=== PATIENT | female | born 1950 | race Caucasian/White ===

== ENCOUNTER → 2018-03-23 09:04 | Outpatient (CLI) | payer OTHER, SELFPAY ==
[2018-03-23 10:29] LABS: Fibrinogen 424 mg/dl (203-444)
[2018-03-23 10:46] LABS: Absolute Lymphocyte Count 1.26 X10^3/ul (0.83-4.51); Absolute Neutrophil Count 8.4 X10^3/uL (2.0-7.7); Basophil# 0.19 X10^3/uL; Basophil% 1.7 % (0-1); Eosinophil# 0.16 X10^3/uL; Eosinophils% 1.4 % (0-5); Hematocrit 48.9 % (37-47); Hemoglobin 16.7 g/dl (12.0-15.0); Lymphocyte # 1.26 X10^3/ul (4.0); Mean Corp Hgb Conc 34.2 g/gl (32-36); Mean Corpuscular Hgb 31.1 pg (27.0-32.0); Mean Corpuscular Volume 91.1 fL (81-99); Mean Platelet Vol. 9.3 fl (6.2-12.0); Monocyte# 1.42 X10^3/uL; Monocyte% 12.4 % (0-10); Neutrophil # 8.43 X10^3/uL (2.7-7.7); Neutrophil % 73.2 % (47-70); RBC Distribution Width CV 16.4 % (11.6-14.6); RBC Distribution Width SD 53.3 fl (35.1-43.9); Red Blood Count 5.37 M/mm3 (4.2-5.4); White Blood Count 11.5 K/mm3 (4.4-11.0)
[2018-03-23 10:47] LABS: Differential Indicated SCAN CRITERIA MET; POSITIVE COUNT YES; POSITIVE DIFFERENTIAL NO; POSITIVE MORPHOLOGY NO
[2018-03-23 10:48] LABS: Erythrocyte Sedimentation Rate 12 mm/hr (0-30)
[2018-03-23 10:53] LABS: CRP 6.34 mg/L (0.0-3.0)
[2018-03-23 11:32] LABS: Platelet Count 954 K/mm3 (150-450)
== END ==
PROVIDERS: Family Provider Family Medicine; PCP Family Medicine; Visit Provider Ophthalmology
DX: H53.2 Diplopia (principal); R51 Headache
CPT/HCPCS: 36415; 85025; 85384; 85652; 86140

== ENCOUNTER 2019-10-01 10:16 | Emergency (ER) | payer MEDICARE, SELFPAY ==
[2019-10-01 10:18] VITALS: BP 164/98; PULSE 141; RESP 17; TEMP 36.7; O2SAT 98; BMI 18.8
--- NOTE | 2019-10-01 10:20 | NURSING ---
NO OLD EKGS
[2019-10-01 10:23] VITALS: BP 164/98; PULSE 121; PULSE 141; RESP 17; RESP 18; TEMP 36.7; O2SAT 97; O2SAT 98
--- NOTE | 2019-10-01 10:30 | EKG12_ITS ---
Test Reason : PALPS Blood Pressure : / mmHG Vent. Rate : 122 BPM Atrial Rate : 286 BPM P-R Int : 000 ms QRS Dur : 082 ms QT Int : 300 ms P-R-T Axes : 089 036 195 degrees QTc Int : 427 ms Atrial flutter with variable A-V block Possible Inferior infarct , age undetermined ST & T wave abnormality, consider anterolateral ischemia Abnormal ECG Confirmed by MCKENZIE TRAVIS, LUPILLO ([id number]), multimedia editor CARLOS NOVAK ([id number]) on 10/04/2019 10:21:01 AM Referred By: ROYA/CONNOR Confirmed By:BALAJI RINCON MD
[2019-10-01 10:38] LABS: Absolute Neutrophil Count 6.5 X10^3/uL (2.0-7.7); Basophil# 0.14 X10^3/uL; Basophil% 1.6 % (0-1); Eosinophil# 0.04 X10^3/uL; Eosinophils% 0.4 % (0-5); Lymphocyte % 12.2 % (19-41); Mean Corp Hgb Conc 34.9 g/dL (32-36); Mean Corpuscular Hgb 36.4 pg (27.0-32.0); Mean Corpuscular Volume 104.4 fL (81-99); Mean Platelet Vol. 8.4 fl (6.2-12.0); Monocyte# 1.18 X10^3/uL; Monocyte% 13.1 % (0-10); NRBC Flagged by Analyzer 0 % (0-5); Neutrophil # 6.52 X10^3/uL (2.7-7.7); Neutrophil % 72.3 % (47-70); Platelet Count 484 K/mm3 (150-450); RBC Distribution Width CV 13.7 % (11.6-14.6); RBC Distribution Width SD 52.5 fl (35.1-43.9); Red Blood Count 4.12 M/mm3 (4.2-5.4)
[2019-10-01] MEDS: 0.9% Normal Saline 1,000 ML 150 ML IV (10:38)
[2019-10-01] MEDS: dilTIAZem 25 MG/5 ML Vial 20 MG IV BOLUS (10:38)
--- NOTE | 2019-10-01 10:40 | RAD_ITS ---
STUDY: X-RAY CHEST REASON FOR EXAM: Female, 69 years old. Tachycardia. Radiation treatment one day ago. TECHNIQUE: Single AP portable view of the chest. COMPARISON: PET scan report dated 11/10/2014 and x-ray dated 10/24/2014. FINDINGS: Cardiac silhouette unremarkable. Pulmonary vascularity unremarkable. Aorta slightly calcified. Left upper lobe masslike airspace disease measuring 6 cm x 4 cm. Biapical calcification/scarring. Extensive COPD/emphysema. Mild pulmonary fibrotic changes. No focal patchy airspace opacities. Costophrenic angle blunting without significant effusions. Upper abdomen unremarkable. Osseous structures demineralized with degenerative features. No pneumothorax. RAD/Chest 1 View (Portable) IMPRESSION: No new focal patchy airspace opacities Left upper lobe mass (routine follow-up recommended) Extensive COPD/emphysema with pulmonary fibrotic changes Costophrenic angle blunting without significant effusions Electronically Signed: Kevin Arreguin DO at 11:17 EST Tel , Service support ,
[2019-10-01 10:59] LABS: Anion Gap 6 (5-15); BUN 8 mg/dL (7-18); BUN/Creat Ratio 10.2 RATIO (10-20); Calcium,Total 8.7 mg/dL (8.5-10.1); Chloride 100 mmol/L (98-107); Creatinine, Serum 0.78 mg/dL (0.55-1.02); EST Glomerular Filtration Rate 78 mL/min (>60); Est Glom Filt Rate - Afr Amer 94 mL/min (>60); Glucose 83 mg/dL (74-106); Potassium 4.3 mmol/L (3.5-5.1); Sodium Level 136 mmol/L (136-145)
[2019-10-01 11:17] VITALS: BP 134/68; PULSE 89; RESP 20; O2SAT 95
--- NOTE | 2019-10-01 11:22 | ED.VISSUMM ---
- ER Visit Summary Date of Service: 10/01/19 Chief Complaint: [Tachycardia] History of Present Illness: The patient is a 69 F [presents the emergency department with tachycardia that was noted today while she was getting radiation for her lung cancer. Patient states that when she got off the radiation table she felt little bit lightheaded and they checked her pulse and it was elevated so she was referred to the emergency department. Patient states that she has had problems with palpitations for years just a month ago she was referred to a umbrella cutter at [facility] as an outpatient she cannot remember the name of the umbrella cutter however. Patient apparently had a outpatient cardioversion and was started on Eliquis at that time. Patient also on Cardizem 300 mg daily. Patient denies any chest pain or shortness of breath. She denies any fevers or recent illness otherwise.] Physical Examination: [HEENT-PERRLA, EOMI. Cranial nerves II through XII grossly intact. TMs clear. Mucous membranes moist. No adenopathy. Cardiovascular-irregularly irregular and tachycardic with heart rate in the 120s. No murmurs auscultated. Lungs-breath sounds bilaterally with some faint expiratory wheezes noted. No accessory muscle use or retractions. Abdomen-normoactive bowel sounds, soft, nontender, no rebound or rigidity, no peritoneal signs. Extremities-intact ?4, normal range of motion, normal pulses, atraumatic] Test Results: [Patient had an EKG on arrival that showed a atrial flutter with ventricular rate of [address] changes. CBC with differential was unremarkable. Chemistries unremarkable. Troponin was less than 0.015. Chest x-ray showed chronic changes and COPD. ] Emergency Department Course and Treatment: [On arrival patient placed on seeing eye dog trainer and was given Cardizem 20 mg IV bolus and her heart rate in the 90s now. Patient case was discussed with umbrella cutter on-call Dr. Paez who did not recommend cardioversion but rather increasing patient's Cardizem to 360 mg daily. He recommended patient follow-up with her umbrella cutter in [place].] Treatment Plan: [] Increase Cardizem to 360 mg daily. Patient to follow-up with her umbrella cutter which she has scheduled appointment with within the next week. Disposition: [Discharged home in stable condition] Impression: [Atrial flutter] This note was generated with Dragon dictation software. It may contain incorrect words, spelling, and punctuation that were not noted in review of the chart prior to signing ED Disposition - Plan for ED Patient: Referrals: Hi Jean [Primary Care Provider] -
--- NOTE | 2019-10-01 11:26 | ED.DEP ---
ED Disposition - Plan for ED Patient: Instructions: Atrial Flutter Prescriptions: Diltiazem CD [Cardizem CD] 360 mg PO DAILY #60 cap Prescription Printed Referrals: Hi Jean [Primary Care Provider] - Additional Instructions: See Dr. Haas within the next week and increase Cardizem dose to 360mg daily
[2019-10-01 11:38] VITALS: BP 143/84; PULSE 91; RESP 16; O2SAT 95
--- NOTE | 2019-10-01 11:40 | ED.RN ---
REVIEWED D/C INSTRUCTIONS, FOLLOW UP CARE, PRESCRIPTION, AND S/S THAT WOULD WARRANT A RETURN TO THE ED WITH PT. PT VERBALIZED AN UNDERSTANDING AND DENIES FURTHER QUESTIONS FOR THIS RN. PT SKIN P/W/D, RESP EVEN AND UNLABORED, PT A&O X 3, NO DISTRESS NOTED.
== END 2019-10-01 11:41 | disposition home or self-care (01) ==
PROVIDERS: Emergency Provider Emergency Medicine; Family Provider Family Medicine; PCP Family Medicine
DX: I48.92 Unspecified atrial flutter (principal); C34.90 Malignant neoplasm of unspecified part of unspecified bronchus or lung; I10 Essential (primary) hypertension; Z72.0 Tobacco use; Z79.02 Long term (current) use of antithrombotics/antiplatelets; Z79.82 Long term (current) use of aspirin; Z79.899 Other long term (current) drug therapy
CPT/HCPCS: 71045; 80048; 84484; 85025; 93005; 96361; 96374; 99284; J7030; A4216

== ENCOUNTER 2019-11-01 10:08 | Day surgery (SDC) | payer MEDICARE, SELFPAY ==
[2019-10-21 13:57] VITALS: BMI 18.6
--- NOTE | 2019-11-01 | TONS_PTH ---
PATIENT: SUSHIL CALLAHAN LOC: [facility] [place] U#:[id number] AGE/SX: 69/F ROOM: RE11/01/[address]: Dr. Kevin Chang MD : 1950 BED: DIS: 11/01/2019 SPEC #: [id number] RECD: 11/01/19 12:12 STATUS: SHANNAN ODILIA #: [id number] PIERO: 11/01/19 00:[address]: Kevin Chang DEPT: SURGICAL PATHOLOGY RECD BY: Estela Renee ENTERED: 11/01/19 12:49 SP TYPE: TONSILS OTHR DR: Dr. Hi Jean MD Tissues: A - Tonsil, NOS Procedures: Frozen Section (charge) Surgery Specimen Level III Surgery Specimen Level IV HEADER OPERATION: Tonsillectomy, frozen section PRE-OP DIAGNOSIS: Benign neoplasm of tonsil; dysphagia TISSUE SUBMITTED: A - Left tonsil, frozen, B - Right tonsil FROZEN SECTION DIAGNOSIS A. Left tonsil: Negative for malignancy. LANCE:dalila 11/01/19 Case has been reviewed in consultation with Dr. Clemente who concurs with the above diagnosis. IDC:AM MICROSCOPIC DIAGNOSIS A. Left tonsil, biopsy: Reactive lymphoid hyperplasia. Extensive actinomyces colonization. Negative for malignancy. B. Right tonsil, biopsy: Reactive lymphoid hyperplasia. Negative for malignancy. LANCE:dalila 11/05/19 COMMENT Correlation with clinical, radiologic findings and appropriate follow up are necessary. MICROSCOPIC DESCRIPTION Slides are reviewed. GROSS DESCRIPTION A - Received fresh for frozen section diagnosis labeled with the patient's name is a specimen designated left tonsil. The specimen consists of a tonsil that weighs 1.6 gm and measures 2 x 1.5 x 1 cm. The external surface is pink-love, smooth, glistening and somewhat lobulated. Focally it is hemorrhagic, granular and bears cautery artifact. The specimen is inked and serially sectioned to reveal normal tonsillar architecture. The entire specimen is submitted for frozen section diagnosis in two cassettes. / LANCE:dalila 11/01/19 B - Received in formalin labeled with the patient's name and designated right tonsil. The specimen consists of a tonsil that weighs 2.1 gm and measures 2.5 x 1 x 1 cm. The external surface is pink-love, smooth, glistening and somewhat lobulated. Focally it is hemorrhagic, granular and bears cautery artifact. Serial cross sections through the tonsil reveal normal tonsillar architecture. The entire specimen is submitted in one cassette. / SJ:dalila 11/04/19 TC:5 CPT: 36609, 77464, 34393, 79873
[2019-11-01 10:34] VITALS: BP 135/85; PULSE 54; RESP 16; TEMP 37.5; O2SAT 96; BMI 20.4
[2019-11-01] MEDS: Lactated Ringers 1,000 ML 100 ML IV ×2 (10:45→12:46)
[2019-11-01 10:47] LABS: Prothrombin Time (Protime)PT. 13.5 SECONDS (11.7-14.9)
[2019-11-01 10:48] LABS: Partial Thromboplast Time 28.3 Seconds (24.1-36.2)
[2019-11-01 10:53] LABS: AST(SGOT) 14 U/L (15-37); Alanine Aminotransfer ALT/SGPT 20 U/L (13-56); Albumin, Serum 3.4 g/dL (3.2-5.0); Alkaline Phosphatase 235 U/L (45-117); Bilirubin, Direct 0.14 mg/dL (0.00-0.30); Globulin 4.7 g/dL (2.2-4.2); Protein, Total 8.1 g/dL (6.4-8.2); Thyroid Stim Hormone (TSH) 3.27 uIU/mL (0.358-3.74)
[2019-11-01] MEDS: Bacitracin 500 UNITS/GM PACKET (12:10)
--- NOTE | 2019-11-01 12:48 | PCM.OPRPT ---
Problem List (1) Benign neoplasm of tonsil Status: Acute (2) Malignant neoplasm of lower lobe, unspecified bronchus or lung Status: Acute Report of Operation Date of Procedure: 11/01/19 Pre-Operative Diagnosis: PET scan with suspicious uptake of left tonsil PET scan with suspicious uptake of left tonsil, history of lung cancer Post-Operative Diagnosis: Same Surgery/Procedure Performed:: Tonsillectomy Description of Surgical Findings:: Paula is a 69-year-old female with a history of recurring malignancies of the lungs. Recent PET scanning showed increased uptake of the left tonsil suspicious for viable neoplasm and biopsy was advised. The risks, alternatives, potential complications, and benefits were discussed at length and any questions answered to the patient and/or caregiver's satisfaction. Witnessed informed consent was obtained in the office, and the patient and/or caregiver was agreeable to proceed. Procedure went as follows: The patient was identified in the preoperative holding, brought to the operating room, was placed under general anesthesia and intubated. When appropriate anesthesia was obtained, the head of bed was rotated and the patient prepped and draped in usual sterile fashion. A Sarina Leandro mouthgag was then placed and the patient suspended from the [place] stand. The oral cavity was examined and noted to have 1+ cryptic tonsillar hypertrophy. Beginning on the right side, the right tonsil was then grasped with a curved tenaculum and dissected from the underlying capsule with monopolar cautery. This was then sent as specimen. Similar procedure was then completed on the contralateral side. Frozen section evaluation showed no suggestion of malignant process within the left tonsil and as such no further dissection was undertaken. The oral and nasal cavities were then irrigated with saline solution. An NG tube was then placed to decompress the stomach. The patient was then returned to anesthesia, revived and extubated having tolerated the procedure well. Type of Anesthesia:: General Anesthesiologist: Sami Mcgill Special Medications: none Specimen's removed: bilateral tonsils Drains: none Estimated Blood Loss (mL): 0 mL Fluids Replaced: 1100 mL Grafts/Implants Used: none - Complications none - Admit VTE Documentation VTE Present on Admission: No VTE Mechan Device Prophylaxis: SCD's VTE Pharm Prophylaxis ordered?: No
--- NOTE | 2019-11-01 12:52 | PCM.DC.T&A ---
Discharge Diet: No Restrictions Discharge Activity: Return to Normal Activity Call your doctor if your incision/area has: Sudden Increased Bleeding Call your doctor if you observe: Fever of 101 or Higher, Uncontrolled pain Allergies/Adverse Reactions: Allergies Penicillins Allergy (Verified 11/01/19 10:28) Rash Medications to take at Discharge Hydroxyurea [Hydrea] 500 mg PO DAILY 10/24/14 Tiotropium [place] [Spiriva 18 MCG] 1 puff INHALATION DAILY 10/24/14 Venlafaxine XR [Effexor Xr] 150 mg PO DAILY 10/24/14 Apixaban [Eliquis] 5 mg PO BID 10/01/19 Levothyroxine [Synthroid] 50 mcg PO DAILY 10/01/19 aspirin 81 mg chewable tablet 162 mg PO DAILY tab 10/21/19 diltiazem HCl 420 mg tablet,extended release 24 hr 420 mg PO DAILY #30 tab 10/21/19 fexofenadine 180 mg tablet 180 mg PO DAILY PRN 10/21/19 Metoprolol Succinate [Toprol Xl] 100 mg PO DAILY 10/28/19 Multivitamin [Multivitamins] 1 ea PO DAILY 10/28/19 Omeprazole 40 mg PO PRN PRN 10/28/19 Primary Care Physician: Hi Jean [Primary Care Provider] - Test Results: Test results from this visit will be discussed in further detail at your follow-up appointment, if applicable. Please Follow Up With: Kevin Chang MD When: 2 weeks
[2019-11-01 12:54] VITALS: BP 109/59; BP 135/85; PULSE 80; RESP 16; TEMP 36.8; O2SAT 95
[2019-11-01 13:00] VITALS: BP 101/58; BP 135/85; PULSE 80; RESP 16; O2SAT 93
[2019-11-01 13:15] VITALS: BP 125/74; BP 135/85; PULSE 62; RESP 16; O2SAT 94
[2019-11-01 13:30] VITALS: BP 130/72; BP 135/85; PULSE 65; RESP 16; TEMP 36.8; O2SAT 94
[2019-11-01] MEDS: Acetaminophen 650 MG/20 ML UDC 500 MG PO (14:13)
[2019-11-01] MEDS: Ibuprofen 100 MG/5 ML UDC 400 MG PO (16:36)
[2019-11-01 17:00] VITALS: BP 118/65; BP 135/85; PULSE 60; RESP 16; TEMP 37.3; O2SAT 96
== END 2019-11-01 17:10 | disposition home or self-care (01) ==
LOC: SDC 10:08 → AC 10:09
PROVIDERS: Anesthesiology; PCP Family Medicine; Referring Provider Otolaryngology; Visit Provider Otolaryngology
PROC: (CPT 42826; principal; 2019-11-01 11:40)
DX: J35.1 Hypertrophy of tonsils (principal); D10.4 Benign neoplasm of tonsil; R13.10 Dysphagia, unspecified; K21.9 Gastro-esophageal reflux disease without esophagitis; I10 Essential (primary) hypertension; J44.9 Chronic obstructive pulmonary disease, unspecified; F10.20 Alcohol dependence, uncomplicated; Y90.9 Presence of alcohol in blood, level not specified; I48.91 Unspecified atrial fibrillation; F17.200 Nicotine dependence, unspecified, uncomplicated; Z79.01 Long term (current) use of anticoagulants; Z85.118 Personal history of other malignant neoplasm of bronchus and lung
CPT/HCPCS: 00170; 42826; 36415; 80076; 84443; 85610; 85730; 88304; 88305; 88331; J7120; J2405

== ENCOUNTER → 2020-03-03 14:48 | Outpatient (CLI) | payer MEDICARE, SELFPAY ==
[2019-11-06 09:49] VITALS: BMI 17.4
--- NOTE | 2020-03-03 14:49 | ECHOD_ITS ---
Reason For Study: LV dysfunction Procedure This was a 2D Doppler, Color Flow transthoracic echocardiogram. Exam performed in department. Left Ventricle Normal LV size. The estimated ejection fraction is 70 %. Diastolic function is indeterminate. No regional wall motion abnormalities noted. Right Ventricle Normal RV size. Normal systolic function. Atria The left atrium is severely enlarged. The right atrium is severely enlarged. No doppler evidence for ASD. Mitral Valve There is no mitral valve stenosis. Mild (1+) mitral valve insufficiency. Tricuspid Valve There is no tricuspid stenosis. Moderate (2+) tricuspid valve insufficiency. Pulmonary artery systolic pressure is 60 mmHg. Aortic Valve Trisinus/trileaflet aortic valve. Aortic sclerosis, no stenosis. There is no aortic stenosis. Mild (1+) aortic valve insufficiency. Pulmonic Valve There is no pulmonic valvular stenosis. Mild (1+) pulmonic valve insufficiency. Great Vessels Normal aortic root. Pericardium/Pleural No pericardial effusion. MMode/2D Measurements & Calculations LVIDd: 4.2 cm IVSd: 0.72 cm Ao root diam: 3.8 cm LVIDs: 2.8 cm LVPWd: 0.78 cm RVDd: 3.6 cm FS: 32.6 % LAV(MOD-bp): 70.5 ml LA A4 area: 22.2 cm2 LA dimension(2D): 5.5 cm LAV(MOD-bp) Indexed: 42.4 ml/m2 LAV(MOD-sp2): 73.9 ml LAV(MOD-sp4): 66.6 ml RA A4 area: 26.3 cm2 Time Measurements MV dec time: 0.10 sec Doppler Measurements & Calculations MV E max rosy: 99.3 cm/sec Ao V2 max: 106.9 cm/sec LV V1 max: 92.4 cm/sec MV A max rosy: 49.7 cm/sec Ao max P.6 mmHg LV V1 max P.5 mmHg MV E/A: 2.0 PA V2 max: 92.2 cm/sec PI end-d rosy: 109.4 cm/sec TR max rosy: 329.8 cm/sec TR max P.7 mmHg Interpretation Summary The estimated ejection fraction is 70 %. Diastolic function is indeterminate. Mild (1+) mitral valve insufficiency. Moderate (2+) tricuspid valve insufficiency. Pulmonary artery systolic pressure is 60 mmHg. Mild (1+) aortic valve insufficiency. Mild (1+) pulmonic valve insufficiency. Ordering Physician: Noelle Paez Referring Physician: Dr Hi Jean Performed By: Romana Del Valle, RDCS, RVT
== END ==
PROVIDERS: PCP Family Medicine; Referring Provider Specialist; Visit Provider Specialist
DX: Z01.810 Encounter for preprocedural cardiovascular examination (principal)
CPT/HCPCS: 93306

== ENCOUNTER → 2020-05-12 14:51 | Outpatient (CLI) | payer MEDICARE, SELFPAY ==
[2020-03-04 09:47] VITALS: BMI 17.4
--- NOTE | 2020-05-12 15:00 | PET_ITS ---
EXAMINATION: FDG PET-CT INDICATIONS: A 70-year-old female with reported history of carcinoma of the lung presenting for restaging examination. COMPARISON EXAMINATION: FDG PET-CT study dated 11/10/14, CT of the chest report dated 04/17/2020 INDEX LESION SIZE SUV INTERPRETATION NEW: left lower lung-nodular 36.7-mm (frame 161) 5.2 Fulfills quantitative criteria for viable neoplasm, histopathologic analysis may be indicated NEW: left lower anterolateral lung-lingula 19.3-mm (frame 151) 2.9 May necessitate histopathologic investigation PREVIOUS: left lower lung-left lower lobe Demonstrates metabolic resolution on the current examination NEW: heterogeneous, diffuse left upper lung 9.1-cm (frame 194) 9.6 Most consistent with activated leukocytes associated with inflammatory process-pneumonitis NEW: right mid posterior lung-right lower lobe 1.6 Quantitative criteria for viable neoplasm are not fulfilled TECHNIQUE: Following the intravenous administration of 15.9 mCi of F-18 deoxyglucose via the left antecubital fossa, multiplanar image acquisitions of the neck, chest, abdomen and pelvis to level of mid thigh, obtained at one hour post radiopharmaceutical administration contemporaneously interpreted with the current CT of the neck, chest, abdomen and pelvis, to level of mid thigh, dated 05/12/2020 via coregistration and FDG PET-CT study dated 11/10/2014, CT of the chest report dated 04/17/2020 reveals: BLOOD GLUCOSE LEVEL:?? 102 mg/dl?HEIGHT:?69 inches?WEIGHT: 116 lbs. FINDINGS: 1. Newly identified nodular increased glucose metabolism is manifest in the left lower posterior lung-left lower lobe generating a calculated maximal standard uptake value of 5.2. The maximal axial diameter of the corresponding parenchymal density on review of CT of the chest dated 05/12/2020 is 36.7-mm (transverse). 2. Heterogeneous increased tracer uptake is diffusely apparent in the left upper lung field-left upper lobe which appears to correspond to consolidation-airspace disease on review of CT of the chest dated 05/12/2020. The calculated maximal standard uptake value is 9.6. The maximal axial diameter of the metabolic-morphologic abnormality on review of CT of the chest dated 05/12/2020 is 9.1-cm (AP). 3. Facilitated tracer uptake is noted in the left lower anterolateral lung-left upper lobe, lingula rendering a calculated maximal standard uptake value of 2.9. The maximal axial diameter of the corresponding apparent ground glass density on review of CT of the chest dated 05/12/2020 is 19.3-mm (AP). 4. Mild increased radiopharmaceutical concentration is observed in the right mid posterior lung-right lower lobe generating a calculated maximal standard uptake value of 1.6. 5. Normal physiologic distribution of the radiopharmaceutical is apparent in the hepatic (1.9/2.5) and splenic parenchyma, both renal units, bladder and visualized intestinal tract. The visualized portion of the cerebral cortex demonstrate symmetric and preserved glucose metabolism. Diffuse radiopharmaceutical concentration is noted in all four quadrants of the abdomen and pelvis. There is evidence of an apparent bladder diverticulum. Prominent collecting system activity is defined in the right-left renal units (R>L). The previously identified left lower posterior lung-left lower lobe hypermetabolic abnormality is not apparent on the current examination. Pertinent CT findings are as follows: CHEST: There is atherosclerotic calcification defined in the thoracic aorta without evidence of dilatation-aneurysm formation. Coronary arterial calcification is observed. Bilateral subcentimeter axillary soft tissue densities are ametabolic. Emphysematous changes are noted in the bilateral upper-mid lung zones. Apparent bleb formation is noted in the right lower posterior lung. ABDOMEN AND PELVIS: Cholelithiasis is defined. There is atherosclerotic calcification defined in the abdominal aorta without evidence of dilatation-aneurysm formation. Abdominal-pelvic arterial calcification is observed. Bilateral inguinal soft tissue densities with fatty hilus are non-glucose avid. SKELETAL: Degenerative changes are noted in the cervical, thoracic and lumbar spine. A compression deformity is noted at the level of the ninth thoracic vertebra without evidence of facilitated FDG uptake. There is diffuse demineralization identified throughout the axial skeletal structures. PET/PET/CT Tumor Base -Thigh Init IMPRESSION: 1. The newly identified nodular focus noted in the left lower posterior lung-left lower lobe, left lower anterolateral lung-lingula likely warrants histopathologic investigation secondary to the quantitative degree of uptake. (Adriana et al, Annals of Internal Medicine, 138:724, 2003). 2. Heterogeneous increased tracer uptake diffusely apparent in the left upper lung field corresponding to consolidation, airspace disease, is most consistent with an inflammatory process-pneumonitis. 3. Subtle increased tracer uptake noted in the right mid posterior lung-right lower lobe does not fulfill quantitative criteria for viable neoplasm. 4. There is interval metabolic resolution of the previously identified left lower lobe hypermetabolic abnormality. 5. Overall, compared to the prior FDG PET study dated 11/10/2014, there is potential interim development of defined viable neoplastic disease within the context of the left lower lobe and left upper lobe-lingula which may necessitate histopathologic sampling. Interval resolution of the prior defined left lower lung hypermetabolic focus is noted as defined above. Electronic Signature Jerad Cespedes D.O. Accurate Quantification of SUVs for this report are calculated using the exclusive [employer]. Electronically Signed: Jerad Cespedes DO at 23:54 EDT Tel , Service support ,
== END ==
PROVIDERS: PCP Family Medicine; Referring Provider Internal Medicine Hematology & Oncology; Visit Provider Internal Medicine Hematology & Oncology
DX: C34.12 Malignant neoplasm of upper lobe, left bronchus or lung (principal); C77.1 Secondary and unspecified malignant neoplasm of intrathoracic lymph nodes; R91.1 Solitary pulmonary nodule
CPT/HCPCS: 78815; A9552

== ENCOUNTER → 2020-05-27 08:48 | Outpatient (CLI) | payer MEDICARE, SELFPAY ==
[2020-03-04 09:47] VITALS: BMI 17.4
[2020-05-27] VITALS (10 sets, daily range): BP systolic 124–159; BP diastolic 57–87; PULSE 81–118; RESP 20–29; O2SAT 90–100; BMI 17.1
--- NOTE | 2020-05-27 | ASPIGT_PTH ---
PATIENT: SUSHIL CALLAHAN LOC: CT U#:[id number] AGE/SX: 75/F ROOM: RE05/27/[address]: Dr. Joan Barillas MD : 1950 BED: DIS: SPEC #: [id number] RECD: 05/27/20 11:42 STATUS: SHANNAN REBetty #: [id number] PIERO: 05/27/20 00:[address]: Joan Barillas DEPT: SURGICAL PATHOLOGY RECD BY: Barney Benedict ENTERED: 05/27/20 11:42 SP TYPE: ASP RAD OTHR DR: Dr. Hi Jean MD Tissues: Lung, NOS Procedures: FNA Specimen Adequacy Elastin Stain (control) Trichrome (control) Special Stain Group II Surgery Specimen Level IV Retic (control) Iron Stain (control) Imprint (control) HEADER OPERATION: CT-guided left lung biopsy PRE-OP DIAGNOSIS: Left lower lung mass TISSUE SUBMITTED: Left lower lung mass 18 gauge x4 MICROSCOPIC DIAGNOSIS Left lower lung mass, CT-guided core biopsy: Fragments of lung parenchymal tissue with extensive fibrosis, chronic inflammation and thrombosis. Negative for malignancy. See microscopic description and comment. LANCE:dalila 05/28/20 COMMENT The specimen is evaluated at the time of biopsy by Dr. Solo. Immediate Evaluation = Atypical cells noted. Correlation with clinical, radiologic findings and appropriate follow up are necessary. MICROSCOPIC DESCRIPTION Slides are reviewed. The specimen shows fragments of lung parenchymal tissue with extensive fibrosis, moderate chronic inflammation, thrombosis and old hemorrhage. Alveoli also shows focal thrombus formation, pneumocyte-2 hyperplasia and mild atypia. No evidence malignancy is noted. Iron, reticulin, elastin and trichrome stains are used in the evaluation of the specimen; matched controls are appropriate. GROSS DESCRIPTION Received in fixative is one container labeled with the patient's name and designated left lower lung mass. The specimen consists of multiple elongated fragments of love soft tissue that in aggregate measure 2 x 0.3 x 0.1 cm. The specimen is totally submitted in one cassette. Four touch imprints are prepared at the time of core biopsy. / LANCE:dalila 05/27/20 TC:5 CPT: 89719, 83145, 09749 x4
--- NOTE | 2020-05-27 09:06 | CT_ITS ---
PROCEDURE: CT-guided core biopsy of lung mass Individualized dose optimization techniques were used for this CT. INDICATION: Female, 70 years old. Nodule in the superior segment the right lung lower lobe. CT guidance CONSENT: The risks, benefits and alternatives to the procedure were explained to the patient, and the patient agreed to the procedure and signed the consent. SEDATION: Intermittent the intravenous and demonstration of Versed and fentanyl by nursing staff under continuous cardiopulmonary monitoring. Sedation less than approximately 30 minutes STERILE BARRIER TECHNIQUE: The following sterile barrier precautions were used during the procedure: hand hygiene; use of 2% chlorhexidine aseptic; use of a cap, mask, sterile gown, sterile gloves, sterile full body drape, and a large sterile sheet. PROCEDURE/TECHNIQUE: The risks, benefits, and alternatives to the procedure were explained to patient, and the patient agreed to the procedure and signed a consent form for the procedure. A timeout was performed to confirm the patient''s identity, the type of procedure, to be performed and the site of entry. Patient was positioned supine on the CT scan table. Under CT guidance using sterile technique and after infiltration of the skin and subcutaneous soft tissues with 40 mL of lidocaine 1% an 18-gauge core biopsy was introduced in the lung mass previously described. 2 core samples were obtained and were placed with in formalin solution and sent to the lab for evaluation. Touch prep slides were examined by the pathologist at the procedure. FINDINGS: Successful CT-guided core biopsy of lung mass. CT/Biopsy/Inj or Needle Placement IMPRESSION: Successful CT-guided core biopsy of lung mass. Electronically Signed: Robert Clifton, at 17:40 EDT Tel , Service support ,
[2020-05-27 09:09] LABS: Hematocrit 36.2 % (37-47); Mean Corp Hgb Conc 33.1 g/dL (32-36); Mean Corpuscular Hgb 31.4 pg (27.0-32.0); Mean Corpuscular Volume 94.8 fL (81-99); POSITIVE COUNT YES; RBC Distribution Width CV 15.6 % (11.6-14.6); RBC Distribution Width SD 54.5 fl (35.1-43.9); Red Blood Count 3.82 M/mm3 (4.2-5.4); White Blood Count 9.7 K/mm3 (4.4-11.0)
[2020-05-27 09:16] LABS: Platelet Count 753 K/mm3 (150-450); Scan Indicated on CBC? Y/N NO
--- NOTE | 2020-05-27 09:27 | NURSING ---
DR PINEDA INFORMED ON PLT COUNT OF [phone].
[2020-05-27 09:40] LABS: International Normalized Ratio 1.1; Prothrombin Time (Protime)PT. 13.8 SECONDS (11.7-14.9)
[2020-05-27 09:41] LABS: Partial Thromboplast Time 32.9 Seconds (24.1-36.2)
[2020-05-27] MEDS: Midazolam 2 MG/2 ML Syringe IV (10:45)
[2020-05-27] MEDS: fentaNYL 100 MCG/2 ML Ampul IV (10:45)
--- NOTE | 2020-05-27 11:30 | RAD_ITS ---
STUDY: X-RAY CHEST REASON FOR EXAM: Female, 70 years old. IMMEDIATE POST LUNG BIOPSY INS AND EXP AP CXR TECHNIQUE: Single AP portable view of the chest. COMPARISON: 10/01/2019. FINDINGS: There is a large opacity in the left lung upper lobe suggesting a mass that has increased in size since the previous study. There is a small left pleural effusion. Normal size heart. Normal mediastinum and samara. Normal visualized pulmonary arteries. Normal visualized aortic arch and descending thoracic aorta. Normal visualized thoracic spine. Normal visualized ribs, clavicles, and shoulders. There is no demonstrated abnormality of the visualized soft tissue structures of the upper abdomen. RAD/Chest Insp/Exp 2 View IMPRESSION: Increased size of left lung upper lobe mass. Small left pleural effusion. There is no evidence of pneumothorax. Electronically Signed: Robert Clifton, at 12:35 EDT Tel , Service support ,
--- NOTE | 2020-05-27 13:25 | RAD_ITS ---
STUDY: X-RAY CHEST REASON FOR EXAM: Female, 70 years old. 2 HOUR POST LUNG BIOPSY INS AND EXP AP CXR''S TECHNIQUE: Single AP portable view of the chest. COMPARISON: None. FINDINGS: There is scarring in the left lung upper lobe. Patchy airspace opacities are seen in both lungs have nonspecific appearance. Pleural calcifications are seen in the right lung apex most likely due to an old infection. Normal size heart. The mediastinum is shifted to the left. Normal visualized pulmonary arteries. Normal visualized aortic arch and descending thoracic aorta. There is demineralization of the osseous structures. There is degenerative osteoarthritis of the bilateral shoulders. There is no demonstrated abnormality of the visualized soft tissue structures of the upper abdomen. RAD/Chest Insp/Exp 2 View IMPRESSION: There is no evidence of pneumothorax. Electronically Signed: Robert Clifton, at 15:13 EDT Tel , Service support ,
[2020-05-28 14:07] LABS: Pathologist Review Reviewed
== END ==
PROVIDERS: PCP Family Medicine; Referring Provider Internal Medicine Hematology & Oncology; Visit Provider Internal Medicine Hematology & Oncology
DX: J84.10 Pulmonary fibrosis, unspecified (principal); R91.8 Other nonspecific abnormal finding of lung field; C34.90 Malignant neoplasm of unspecified part of unspecified bronchus or lung; J90 Pleural effusion, not elsewhere classified
CPT/HCPCS: 32405; 36415; 71046; 77012; 85027; 85610; 85730; 88172; 88305; 88313; 99155; 99156; 99157; J7040; A4216

== ENCOUNTER → 2020-11-03 08:49 | Outpatient (CLI) | payer MEDICARE, SELFPAY ==
[2020-05-27 09:53] VITALS: BMI 17.1
[2020-11-03] VITALS (13 sets, daily range): BP systolic 97–135; BP diastolic 63–75; PULSE 56–60; RESP 20–27; TEMP 36.6; O2SAT 93–100; BMI 16.5
--- NOTE | 2020-11-03 | ASPIGT_PTH ---
PATIENT: SUSHIL CALLAHAN LOC: [place] U#:[id number] AGE/SX: 75/F ROOM: RE11/03/[address]: Dr. Joan Barillas MD : 1950 BED: DIS: SPEC #: [id number] RECD: 11/03/20 11:25 STATUS: SHANNAN REBetty #: [id number] PIERO: 11/03/20 00:[address]: Joan Barillas DEPT: SURGICAL PATHOLOGY RECD BY: Jemima Horne ENTERED: 11/03/20 11:26 SP TYPE: ASP RAD OTHR DR: Dr. Hi Jean MD Tissues: Lung, NOS Procedures: PAS with Diastase (control) FNA Specimen Adequacy Elastin Stain (control) Trichrome (control) Special Stain Group II PAS Stain (control) Surgery Specimen Level IV Retic (control) Iron Stain (control) Imprint (control) HEADER OPERATION: CT-guided right lung biopsy PRE-OP DIAGNOSIS: Right lung mass TISSUE SUBMITTED: Right lung mass, 20-gauge core x5 MICROSCOPIC DIAGNOSIS Right lung mass, CT-guided core biopsy: Collagenized tissue with fibrinoid material and focal mild chronic inflammation. No evidence of malignancy. See comment. AM:dalila 11/04/2020 COMMENT The specimen is evaluated at the time of biopsy by Dr. Solo. Immediate Evaluation = Negative for malignant cells. Iron stain with matched control reveals no stainable intraparenchymal iron. Reticulin and trichrome stain with matched controls are focally positive. Elastin stain with matched control does not reveal vasculitis. PAS with and without diastase does not reveal an accumulation of abnormal proteins. Clinical correlation is suggested. Reference is made to the patient's left lower lung mass, CT-guided core biopsy ([id number]) which was negative for malignancy. MICROSCOPIC DESCRIPTION Slides are reviewed. GROSS DESCRIPTION Received in fixative is one container labeled with the patient's name and designated right lung, CT-guided core biopsy. The specimen consists of multiple elongated fragments of love soft tissue that in aggregate measure 1 x 0.2 x 0.1 cm. The specimen is totally submitted in one cassette. Five touch imprints are prepared at the time of core biopsy. / LANCE:dalila 11/03/20 TC:4 CPT: 05058, 57987, 07189 x6
--- NOTE | 2020-11-03 09:03 | CT_ITS ---
PROCEDURE: CT GUIDED CORE NEEDLE BIOPSY OF A right lower lobe LUNG LESION INDICATION: Female, 70 years old. Right lung mass biopsy, COPD, metastatic lung cancer. PHYSICIAN: Dr. HARRIETT TRAVIS CONSENT: Written informed consent was obtained having explained the risks, benefits and alternatives in detail with the patient who accepted the risks and agreed to proceed. Laboratory review and clinical assessment was performed. CONSCIOUS SEDATION PROTOCOL: The Drugs used were: 1 mg Versed, IV., and 25 mcg Fentanyl, IV. The sedation time was: 15 minutes. The conscious sedation protocol was independently monitored. Conscious sedation was started at 10:34 AM and terminated at 10:44 AM. RADIATION DOSAGE (If Supplied By Facility): CTDIvol = ( 11.5 ) mGy, DLP = ( 140.64 ) mGycm Individualized dose optimization techniques were used for this CT. TECHNIQUE: The patient was placed in the prone position. A noncontrast CT was performed to localize the lesion in the posterior aspect of the right lower lobe . The skin surface was prepped and draped in a sterile fashion. 1% lidocaine was used for local anesthesia. Using CT guidance, a 20-gauge coaxial biopsy device was advanced to the periphery of the lesion. A total of 5 core specimens were obtained. The specimens were placed in a formalin solution. A post procedure CT demonstrated no adverse sequelae or pneumothorax. The patient tolerated the procedure well without adverse event. A negative biopsy does not exclude malignancy. Further imaging or clinical followup based on patient condition and degree of clinical suspicion for malignancy. Suggest rebiopsy, if biopsy results do not match with clinical scenario. CT/Biopsy/Inj or Needle Placement IMPRESSION: 1. CT directed core needle biopsy of the right lower lobe pulmonary nodular lesion using CT image guidance with image documentation as described. Pathology results are pending. 2. Conscious Sedation protocol utilized with independent monitoring. Electronically Signed: Ever Gomez MD at 11:21 EST , Service support ,
[2020-11-03 09:07] LABS: Hematocrit 40.6 % (37-47); Mean Corpuscular Hgb 24.8 pg (27.0-32.0); Mean Corpuscular Volume 77.3 fL (81-99); Mean Platelet Vol. 7.9 fl (6.2-12.0); POSITIVE MORPHOLOGY YES; Platelet Count 711 K/mm3 (150-450); RBC Distribution Width CV 22.8 % (11.6-14.6); RBC Distribution Width SD 62.4 fl (35.1-43.9); Red Blood Count 5.25 M/mm3 (4.2-5.4)
[2020-11-03 09:09] LABS: Scan Indicated on CBC? Y/N YES- FLAGS NOTED
[2020-11-03 09:24] LABS: International Normalized Ratio 1.1; Prothrombin Time (Protime)PT. 13.2 SECONDS (11.7-14.9)
[2020-11-03] MEDS: Midazolam 2 MG/2 ML Syringe IV (10:34)
[2020-11-03] MEDS: fentaNYL 100 MCG/2 ML Ampul IV (10:35)
--- NOTE | 2020-11-03 10:50 | RAD_ITS ---
STUDY: X-RAY CHEST REASON FOR EXAM: Female, 70 years old. Immediate post lung biopsy AP inspiration and expiration. TECHNIQUE: AP inspiration expiration views. COMPARISON: Comparison is made with prior study dated 05/27/2020. FINDINGS: The patient is status post right lung biopsy. No evidence of pneumothorax. RAD/Chest Insp/Exp 2 View IMPRESSION: No evidence of pneumothorax on the immediate post right lung biopsy radiographs. Electronically Signed: Ever Gomez MD at 15:25 EST , Service support ,
--- NOTE | 2020-11-03 12:15 | RAD_ITS ---
STUDY: X-RAY CHEST REASON FOR EXAM: Female, 70 years old. 2HRS POST LUNG BX OF RIGHT LUNG. INSP. AND EXP. TECHNIQUE: AP inspiration and expiration views. COMPARISON: Comparison is made with prior study done earlier today. FINDINGS: 2 lower delayed postright lung biopsy radiographs. There is no evidence of pneumothorax. RAD/Chest Insp/Exp 2 View IMPRESSION: No evidence of pneumothorax on the delayed two-hour postright lung biopsy radiographs. Electronically Signed: Ever Gomez MD at 13:31 EST , Service support ,
== END ==
PROVIDERS: PCP Family Medicine; Referring Provider Internal Medicine Hematology & Oncology; Visit Provider Internal Medicine Hematology & Oncology
DX: J44.9 Chronic obstructive pulmonary disease, unspecified (principal); C78.00 Secondary malignant neoplasm of unspecified lung; D45 Polycythemia vera
CPT/HCPCS: 32408; 36415; 71046; 77012; 85027; 85610; 88172; 88305; 88313; J7040; A4216

== ENCOUNTER → 2020-12-30 12:58 | Outpatient (CLI) | payer MEDICARE, SELFPAY ==
[2020-12-01 10:48] VITALS: BMI 15.5
--- NOTE | 2020-12-31 10:03 | PFT ---
INTRODUCTION: The patient is a 70-year-old female that presents for pulmonary function studies secondary to a diagnosis of COPD. Respiratory therapy reported the patient was unable to perform the diffusing capacity maneuver. Bronchodilators were used during testing. INTERPRETATION: Forced expiration spirometry demonstrates no evidence of a large airways obstructive ventilatory defect. There was no significant response to aerosolized bronchodilators. Spirograms are of fair quality and plateau gradually. Body plethysmography was performed and reveals a decreased TLC to 4.41 L, 76% of predicted, indicative of a mild restrictive ventilatory impairment. Diffusing capacity maneuvers were unable to be performed. IMPRESSION: Isolated mild restrictive ventilatory impairment.
== END ==
PROVIDERS: PCP Family Medicine; Referring Provider Internal Medicine Critical Care Medicine; Visit Provider Internal Medicine Critical Care Medicine
DX: J44.9 Chronic obstructive pulmonary disease, unspecified (principal)
CPT/HCPCS: 94060; 94726

== ENCOUNTER → 2021-01-04 12:29 | Outpatient (CLI) | payer MEDICARE, SELFPAY ==
[2020-12-01 10:48] VITALS: BMI 15.5
[2021-01-04 12:54] VITALS: PULSE 60; PULSE 64; PULSE 69; PULSE 87; PULSE 88; PULSE 89; PULSE 91; PULSE 92; O2SAT 87; O2SAT 88; O2SAT 91; O2SAT 92; O2SAT 94
--- NOTE | 2021-01-04 12:57 | CPS ---
Patient arrived in wheelchair on 2L pulse dose, patient placed on RA and desaturated to 87%. 2L was added and pulse ox came up to 92%. Patient started walk on 2L pulse dose. Patient pushed wheelchair. Patient's pulse ox dropped to 88% at the 3 min jason, o2 increased to 3L pulse dose. Patient's pulse ox dropped to 87% at the 4 min jason, O2 increased to 4L pulse dose. Patient walked 125 feet but that is more than she normally does. Ryder APPLIED RESEARCHER
--- NOTE | 2021-01-04 14:07 | PCM.PSN.6M ---
PSN 6 Minute Walk Test - 6 Minute Walk Test 6 Minute Walk Test: 6 Minute Walk Test PSN:6-Minute Walk Test Start: 01/04/21 12:54 Freq: Status: Active Protocol: RESP.6MINW Document 01/04/21 12:54 CECILY (Rec: 01/04/21 13:04 CECILY [id number]) 6 Minute Walk Test Date Performed 01/04/21 Time Performed 12:30 Height 5 ft 9 in Weight: 47.627 kg Weight in Pounds 105.[address]: Andre Jean Pre-test Oxygen Delivery Method Room Air Pulse Ox (%) 87 Pulse Rate (60-100 beats/min) 60 Dyspnea Davidson Scale (0-10) 2 Exertion Davidson Scale (6-20) 6 1st minute Oxygen Flow Rate (L/min) (L/min) 2 Oxygen Delivery Method Nasal Cannula Pulse Ox (%) 94 Pulse Rate (60-100 beats/min) 89 2nd minute Oxygen Flow Rate (L/min) (L/min) 2 Oxygen Delivery Method Nasal Cannula Pulse Ox (%) 91 Pulse Rate (60-100 beats/min) 92 3rd minute Oxygen Flow Rate (L/min) (L/min) 2 Oxygen Delivery Method Nasal Cannula Pulse Ox (%) 88 Pulse Rate (60-100 beats/min) 87 4th minute Oxygen Flow Rate (L/min) (L/min) 3 Oxygen Delivery Method Nasal Cannula Pulse Ox (%) 87 Pulse Rate (60-100 beats/min) 91 5th minute Oxygen Flow Rate (L/min) (L/min) 4 Oxygen Delivery Method Nasal Cannula Pulse Ox (%) 91 Pulse Rate (60-100 beats/min) 69 6th minute Oxygen Flow Rate (L/min) (L/min) 4 Pulse Ox (%) 92 Pulse Rate (60-100 beats/min) 88 Dyspnea Davidson Scale (0-10) 4 Exertion Davidson Scale (6-20) 13 Post-test Oxygen Flow Rate (L/min) (L/min) 4 Oxygen Delivery Method Nasal Cannula Pulse Ox (%) 92 Pulse Rate (60-100 beats/min) 64 Full Laps Walked 2 Partial Lap, Number of Tiles Walked 7 Total Distance Walked (ft) 125 01/04/21 12:57 Cardiopulmonary Services by Shruthi Snell Patient arrived in wheelchair on 2L pulse dose, patient placed on RA and desaturated to 87%. 2L was added and pulse ox came up to 92%. Patient started walk on 2L pulse dose. Patient pushed wheelchair. Patient's pulse ox dropped to 88% at the 3 min jason, o2 increased to 3L pulse dose. Patient's pulse ox dropped to 87% at the 4 min jason, O2 increased to 4L pulse dose. Patient walked 125 feet but that is more than she normally does. Ryder CONTRERAS Initialized on 01/04/21 12:57 - END OF NOTE - Interpretation Interpretation: The patient was noted to be 87% on room air at rest. The patient was then placed on 2 L nasal cannula with improvement to 92%. The patient eventually required 4 L nasal cannula to maintain saturations over the course of a 6-minute walk with assistance of a post wheelchair. In total, the patient traveled only 125 feet. These findings are consistent with a respiratory limitation exercise tolerance. - Recommendations Recommendations: The patient requires 2 L pulse dose at rest, but should be using up to 4 L pulse dose with any ambulation.
== END ==
PROVIDERS: PCP Family Medicine; Referring Provider Internal Medicine Critical Care Medicine; Visit Provider Internal Medicine Critical Care Medicine
DX: J44.9 Chronic obstructive pulmonary disease, unspecified (principal)
CPT/HCPCS: 94618

== ENCOUNTER → 2021-08-23 14:50 | Outpatient (CLI) | payer MEDICARE, SELFPAY ==
--- NOTE | 2021-08-23 14:51 | CT_ITS ---
EXAM: CT CHEST AND ABDOMEN WITH INTRAVENOUS CONTRAST CLINICAL INDICATION: LUNG CANCER TECHNIQUE: Helically acquired images were obtained of the chest and abdomen with intravenous contrast. This CT exam was performed using one or more of the following dose reduction techniques: automated exposure control, adjustment of the mA and/or kV according to patient size, and/or use of iterative reconstruction technique. This report was created using Palk[employer] report generation technology. CONTRAST: IV 100mL Isovue-370 COMPARISON: None. 10.28.20 has no images or report. But is listed as a prior. FINDINGS: CHEST: LUNGS AND PLEURAL SPACES: Right and left apical calcified pleural plaques. Metastatic lung disease bilaterally. There are cavitary lesions in the left upper lobe and right lower lobe. There is no pneumothorax. Fluid in the right fissure. 34 mm cavitary type lesion in the right lower lobe. Overlying parenchymal thickening. Left upper lobe cavitary lesion. This measures 71 mm. There are scattered blebs and bullae. This can be seen in pulmonary emphysema. Multiple right spiculated nodules in the lung. These measures up to 28 x 14mm. Right and left apical calcified pleural plaques. HEART: There are calcifications of the coronary arteries. Heart size is normal. No pericardial effusion. MEDIASTINUM: There is mediastinal lymphadenopathy. Esophagus is unremarkable. No hiatal hernia. THYROID: Unremarkable. No thyroid lesions. ABDOMEN: LIVER: Scattered hypodense lesions in the liver. These are too small to categorize. Metastatic disease is difficult to exclude given the findings above. There is intrahepatic ductal dilation. GALLBLADDER AND BILE DUCTS: Gallstones. PANCREAS: Unremarkable. No focal cystic or solid mass. SPLEEN: Unremarkable. Normal size without focal cystic or solid mass. ADRENALS: Unremarkable. No nodules. KIDNEYS AND URETERS: Simple right renal cyst. No follow-up required. Normal renal size and position. No hydronephrosis. STOMACH AND BOWEL: There is stool throughout the colon consistent with constipation. No stomach or bowel distention. No focal inflammatory change. INTRAPERITONEAL SPACE: Unremarkable. No ascites or other fluid collection. No free air. CHEST and ABDOMEN: BONES/JOINTS: T11, T9, T8 compression deformities of the spine. These are age-indeterminate. MRI could further evaluate if of concern. No suspicious lytic or blastic abnormality. SOFT TISSUES: Unremarkable. No discrete abdominal wall hernia. VASCULATURE: Normal hilar regions. Normal pulmonary arteries. There is atherosclerotic calcification of the aortic arch with tortuosity and elongation of the aortic arch and descending thoracic aorta. Aorta is non-dilated. No aortic dissection. No obvious central pulmonary embolism although this study was not performed with the pulmonary embolism protocol. LYMPH NODES: See above. CT/CT Chest AND Abd W/ Contrast IMPRESSION: 1. There is mediastinal lymphadenopathy. 2. Right and left apical calcified pleural plaques. 3. Metastatic lung disease bilaterally. There are cavitary lesions in the left upper lobe and right lower lobe. 4. Scattered hypodense lesions in the liver. These are too small to categorize. Metastatic disease is difficult to exclude given the findings above. 5. Gallstones. 6. There is stool throughout the colon consistent with constipation. 7. T11, T9, T8 compression deformities of the spine. These are age-indeterminate. MRI could further evaluate if of concern. Electronically Signed: Flakito Dyer MD at 16:22 EST , Service support ,
[2021-08-23 15:06] LABS: CREATININE FINGERSTICK < 0.6 mg/dL (0.55-1.02); EGFR FINGERSTICK > 60.0000 mL/min (>60)
== END ==
PROVIDERS: PCP Family Medicine; Visit Provider Internal Medicine Medical Oncology
DX: Z01.812 Encounter for preprocedural laboratory examination (principal); C34.32 Malignant neoplasm of lower lobe, left bronchus or lung
CPT/HCPCS: 71260; 74160; Q9967; A4216

== ENCOUNTER 2021-11-15 12:53 | Outpatient (CLI) | payer MEDICARE, SELFPAY ==
--- NOTE | 2021-11-15 13:15 | CT_ITS ---
STUDY: CT CHEST WITH CONTRAST REASON FOR EXAM: Female, 71 years old. Monitor lung cancer. RADIATION DOSAGE (If Supplied By Facility): CTDIvol = ( 9.21 ) mGy, DLP = ( 174.88 ) mGycm TECHNIQUE: Transaxial imaging was performed following intravenous administration of 100 mL Isovue 300. Multiplanar coronal and sagittal images were reformatted. Individualized dose optimization techniques were used for this CT. COMPARISON: No prior images are available for comparison at this time. FINDINGS: The patient is cachectic. Diffuse emphysematous changes with bullous formation worse in the upper lobes. There is volume loss in the left hemithorax. There is a 6.5 cm x 3.9 cm cystic density in the lateral aspect of the left upper lobe. There are increased linear markings in the left upper lobe extending into the lingular segment of the left upper lobe. This most likely than scarring. Increased markings are also seen at the lung bases more prominent on the left side. There is evidence of pleural thickening at the right lung base. There is a 3.1 cm x 3.4 cm cavitated nodule in the right lower lobe. At this time, there is a residual 1.1 cm x 1.2 cm nodule in the right lower lobe as seen on axial image #73. There is also evidence of a residual 6.5 mm nodule in the right lower lobe laterally which is pleural-based. This is seen on axial image #106. By prior report, there has been improvement in the right pulmonary nodules. There are mild calcifications of the coronary arteries. There are multiple small lymph nodes within the mediastinum, which are normal in size and morphology most compatible with reactive lymph hyperplasia. Normal hilar regions. Normal enhanced pulmonary arteries. Normal aorta arch and descending thoracic aorta. There is demineralization of the thoracic spine. Almost complete collapse of mid to lower dorsal vertebrae. Increased kyphotic deformity. There is no demonstrated abnormality of the visualized upper abdomen. CT/Chest WITH Contrast IMPRESSION: Based on the prior report, there appears to be almost complete resolution of the right pulmonary nodules. The remainder of the examination is essentially unchanged. Electronically Signed: Ever Gomez MD at 9:03 EST ,
== END 2021-11-15 23:59 | disposition home or self-care (01) ==
LOC: CT 12:54
PROVIDERS: PCP Family Medicine; Referring Provider Internal Medicine Medical Oncology; Visit Provider Internal Medicine Medical Oncology
DX: C34.32 Malignant neoplasm of lower lobe, left bronchus or lung (principal)
CPT/HCPCS: 71260; Q9967

== ENCOUNTER 2021-11-22 13:09 | Outpatient (CLI) | payer MEDICARE, SELFPAY ==
--- NOTE | 2021-11-22 13:40 | MRI_ITS ---
STUDY: MRI BRAIN WITH AND WITHOUT CONTRAST REASON FOR EXAM: Female, 71 years old. LUNG CANCER TECHNIQUE: Standardized multiplanar fat and water weighted pulse sequences were obtained. DOTAREM 10mL was administered for the contrast portion of the examination. COMPARISON: None. FINDINGS: There is mild cerebral atrophy with widening of the extra-axial spaces and ventricular dilatation. There are multiple white matter hyperintensities, distributed throughout the deep white matter tracts of the cerebral hemispheres, consistent with moderate chronic white matter ischemic changes. Normal bilateral basal ganglia. Normal thalami. There is no extra-axial fluid accumulation. Normal flow voids within the major intracranial circulation suggesting patency by spin echo criteria. Normal venous enhancement. There is no enhancing intra-axial or extra-axial abnormality. Normal sella turcica, pituitary gland, infundibular stalk, optic chiasm and hypothalamus. Normal tectal plate and pineal gland. Normal midbrain, regino and medulla. Normal cerebellum. Normal basal cisterns. Normal bilateral temporal bones. Normal bilateral internal auditory canals. No demonstrated orbital abnormality, within the constraints of a routine brain study. Normal visualized paranasal sinuses. Normal calvarium and skull base. Normal visualized soft tissue structures. Normal visualized upper cervical spine. MRI/Brain W/WO Contrast IMPRESSION: Involutional changes of the brain, as described above. Electronically Signed: Robert Clifton MD at 23:54 EST ,
== END 2021-11-22 23:59 | disposition home or self-care (01) ==
LOC: MRI 13:09
PROVIDERS: PCP Family Medicine; Visit Provider Internal Medicine Medical Oncology
DX: C34.90 Malignant neoplasm of unspecified part of unspecified bronchus or lung (principal)
CPT/HCPCS: 70553; A9575

== ENCOUNTER 2021-12-22 12:55 | Outpatient (CLI) | payer MEDICARE, SELFPAY ==
--- NOTE | 2021-12-22 14:14 | PFTCOMP ---
COMPLETE PULMONARY FUNCTION TEST INTERPRETATION Brief HPI: Patient is a 71 year old [female male], currently under the care of Dr. Jean, who presents to [facility] for complete pulmonary function tests secondary to diagnosis of abnormal PFT. Respiratory therapist reports good effort and reproducible results. Interpretation: Forced expiration spirometry shows a severe large airways obstructive ventilatory defect with an FEV1 of 47% predicted. There is a significant bronchodilator response in FVC by strict ATS criteria. Spirograms are of good quality and plateau [slowly, indicating slowly emptying areas of the lungs]. The respiratory flow volume loop shows [decreased expiratory flow rates at all lung volumes consistent with airway obstruction]. Lung volumes by body plethysmography show a decreased total lung capacity at 2.58 L, 44% predicted. [All other lung volumes are reduced symmetrically.] Diffusion capacity by carbon monoxide is decreased at 34% predicted. The airway resistance is elevated. [Compared to previous pulmonary function tests from] 12/30/2020, there has been some improvement in FVC by 19%. However, lung volumes and DLCO are not able to be compared secondary to differing techniques. Impression: Partially reversible severe mixed ventilatory defect with a symmetric reduction diffusing capacity
== END 2021-12-22 23:59 | disposition home or self-care (01) ==
LOC: PSN 12:57
PROVIDERS: PCP Family Medicine; Referring Provider Internal Medicine Critical Care Medicine; Visit Provider Internal Medicine Critical Care Medicine
DX: R94.2 Abnormal results of pulmonary function studies (principal)
CPT/HCPCS: 94060; 94726; 94729

== ENCOUNTER 2021-12-30 11:01 | Outpatient (CLI) | payer MEDICARE, SELFPAY ==
[2021-12-30 11:59] VITALS: PULSE 65; PULSE 68; PULSE 70; PULSE 74; PULSE 75; PULSE 78; PULSE 79; PULSE 81; O2SAT 92; O2SAT 94; O2SAT 95; O2SAT 96; O2SAT 97; O2SAT 98
--- NOTE | 2021-12-30 12:02 | CPS ---
Patient came in on own portable concentrator at 4 lpm pulse dose. Patient took off cannula and SpO2 was already 86%. Patient put 4 lpm pulse dose back on and was instructed to take some deep breaths through her nose. After several minutes of normal breathing on 4 lpm pulse dose SpO2 stayed between 82-86%. Placed patient on 4 lpm continuous oxygen, SpO2 increased to 95%, started walk at that time. Patient had to take several breaks throughout the walk and ended up having to stop at the 5th minute due to feeling wobbly and weak.
--- NOTE | 2021-12-31 07:23 | WT_ITS ---
PSN 6 Minute Walk Test 6 Minute Walk Test 6 Minute Walk Test: 6 Minute Walk Test PSN:6-Minute Walk Test Start: 12/30/21 11:58 Freq: Status: Active Protocol: RESP.6MINW Document 12/30/21 11:59 MALVIN (Rec: 12/30/21 12:05 MALVIN [id number]) 6 Minute Walk Test Date Performed 12/30/21 Time Performed 11:15 Height 5 ft 9 in Weight: 51.71 kg Weight in Pounds 114.[address]: Andre Jean Assistive device used: None Pre-test Oxygen Flow Rate (L/min) (L/min) 4 Oxygen Delivery Method Nasal Cannula Pulse Ox (%) 95 Pulse Rate (60-100 beats/min) 65 Dyspnea Davidson Scale (0-10) 0 Exertion Davidson Scale (6-20) 6 1st minute Oxygen Flow Rate (L/min) (L/min) 4 Oxygen Delivery Method Nasal Cannula Pulse Ox (%) 96 Pulse Rate (60-100 beats/min) 68 2nd minute Oxygen Flow Rate (L/min) (L/min) 4 Oxygen Delivery Method Nasal Cannula Pulse Ox (%) 98 Pulse Rate (60-100 beats/min) 75 Number of Rests Taken 1 3rd minute Oxygen Flow Rate (L/min) (L/min) 4 Oxygen Delivery Method Nasal Cannula Pulse Ox (%) 97 Pulse Rate (60-100 beats/min) 78 4th minute Oxygen Flow Rate (L/min) (L/min) 4 Oxygen Delivery Method Nasal Cannula Pulse Ox (%) 95 Pulse Rate (60-100 beats/min) 79 Number of Rests Taken 1 5th minute Oxygen Flow Rate (L/min) (L/min) 4 Oxygen Delivery Method Nasal Cannula Pulse Ox (%) 92 Pulse Rate (60-100 beats/min) 81 6th minute Oxygen Flow Rate (L/min) (L/min) 4 Oxygen Delivery Method Nasal Cannula Pulse Ox (%) 94 Pulse Rate (60-100 beats/min) 74 Dyspnea Davidson Scale (0-10) 4 Exertion Davidson Scale (6-20) 14 Number of Rests Taken 1 Post-test Oxygen Flow Rate (L/min) (L/min) 4 Oxygen Delivery Method Nasal Cannula Pulse Ox (%) 96 Pulse Rate (60-100 beats/min) 70 Full Laps Walked 6 Partial Lap, Number of Tiles Walked 10 Total Distance Walked (ft) 364 12/30/21 12:02 Cardiopulmonary Services by Narda Martin Patient came in on own portable concentrator at 4 lpm pulse dose. Patient took off cannula and SpO2 was already 86%. Patient put 4 lpm pulse dose back on and was instructed to take some deep breaths through her nose. After several minutes of normal breathing on 4 lpm pulse dose SpO2 stayed between 82-86%. Placed patient on 4 lpm continuous oxygen, SpO2 increased to 95%, started walk at that time. Patient had to take several breaks throughout the walk and ended up having to stop at the 5th minute due to feeling wobbly and weak. Initialized on 12/30/21 12:02 - END OF NOTE Interpretation Interpretation: The patient ambulated 364 feet over the course of 6 minutes on nasal cannula without any assistive devices. Pretesting oxygen saturation on room air was noted to be 86%. The patient was initially placed on her home 4 L/min pulse dose oxygen but remained hypoxemic. Therefore, she was transitioned to 4 L/min continuous flow with improvement in oxygenation to 95%. With am bulation, the monico oxygen saturation was 92%. The patient did stop after minute 5 of testing and was unable to ambulate any further. Recommendations Recommendations: 4 L/min of continuous flow supplemental oxygen should be utilized both at rest and with exertion.
== END 2021-12-30 23:59 | disposition home or self-care (01) ==
LOC: PSN 11:01
PROVIDERS: PCP Family Medicine; Referring Provider Internal Medicine Critical Care Medicine; Visit Provider Internal Medicine Critical Care Medicine
DX: R94.2 Abnormal results of pulmonary function studies (principal)
CPT/HCPCS: 94618

== ENCOUNTER → 2022-04-04 | Outpatient (CLI) | payer MEDICARE, SELFPAY ==
--- NOTE | 2022-04-04 14:52 | CT_ITS ---
STUDY: CT CHEST WITH CONTRAST REASON FOR EXAM: Female, 72 years old. MONITOR LUNG CA RADIATION DOSAGE (If Supplied By Facility): CTDIvol = ( 12.34 ) mGy, DLP = ( 183.61 ) mGycm TECHNIQUE: Transaxial imaging was performed following intravenous administration of IV 100mL Isovue-300. Individualized dose optimization techniques were used for this CT. COMPARISON: CT chest 11/15/2021.. FINDINGS: LUNGS: Emphysematous changes. Right lower lobe nodule measures 1.4 x 1.2 x 1.5 cm, appears increased compared to 1.1 x 1 x 1.4 cm on the prior, and is more rounded with spiculated margins. Smaller nodule in the right middle lobe unchanged. Large cavitary lesion in the left upper lobe is relatively stable size, with increased heterogeneous lobular material within the lesion which is new, with thick irregular wall especially along the posterolateral margin. Adjacent reticular opacities in the left upper lobe and volume loss, unchanged. Cavitary nodule in the right lower lobe, and focal pleural thickening right and left lower lobe not significantly changed. Reticular opacities in the lower lungs not significantly changed. PLEURA: No pleural effusion. No pneumothorax. MEDIASTINUM: A few prominent lymph nodes in the mediastinum and hilar regions not significantly changed.. HEART: Not enlarged. AORTA: Normal caliber. UPPER ABDOMEN: No acute abnormalities. BONES/SOFT TISSUES: Osteopenia. Multiple thoracic compression abnormalities and kyphosis not significantly changed. Enlarged left supraclavicular lymph nodes unchanged. OTHER: None. CT/Chest WITH Contrast IMPRESSION: Left upper lobe large cavitary lesion with increased intracavitary complex material which may be blood, debris or tumor. Right lower lobe pulmonary nodule increased size. Remainder of the exam is stable. Electronically Signed: Romana Harkins MD at 4:14 EDT ,
== END | disposition home or self-care (01) ==
LOC: CT 14:51
PROVIDERS: PCP Family Medicine; Referring Provider Internal Medicine Medical Oncology; Visit Provider Internal Medicine Medical Oncology
DX: C34.32 Malignant neoplasm of lower lobe, left bronchus or lung (principal)
CPT/HCPCS: 71260; Q9967

== ENCOUNTER → 2022-07-25 | Outpatient (CLI) | payer MEDICARE, SELFPAY ==
--- NOTE | 2022-07-25 12:53 | CT_ITS ---
STUDY: CT CHEST T ABDOMEN WITH CONTRAST REASON FOR EXAM: Female, 72 years old. MONITOR LUNG CA RADIATION DOSAGE (If Supplied By Facility): CTDIvol = ( 11.16 ) mGy, DLP = ( 356.68 ) mGycm TECHNIQUE: Transaxial imaging was performed following intravenous administration of IV 100mL Isovue-300. Individualized dose optimization techniques were used for this CT. COMPARISON: 04/04/2022 FINDINGS: CHEST Severe bilateral apical scarring, calcified on the right. No change in the cystic area in the scarring in the left upper lobe. Moderate emphysema. Some left lower lobe linear scarring. No change in the 3 cm triangular-shaped area of soft tissue attenuation in the posterior subpleural right lower lobe of the lungs which may represent a mass or scarring. Interval increase in the size and bulk of the right lower lobe nodule from 1.2 cm in diameter 1.5 cm in diameter worrisome for bronchogenic carcinoma. There is no demonstrated pleural abnormality. Normal heart and pericardium. Normal mediastinum. Normal hilar regions. Normal unenhanced pulmonary arteries. There is atherosclerotic calcification of the aortic arch with tortuosity and elongation of the aortic arch and descending thoracic aorta. Chronic compression fractures of the mid thoracic spine with increased kyphosis. Dextroscoliosis of the thoracic spine. There is no demonstrated abnormality of the visualized upper abdomen. ABDOMEN The visualized lung bases are unremarkable. The visualized portions of the heart are within normal limits. Normal liver. There are multiple gallstones. Moderate biliary ductal dilatation and pancreatic ductal dilatation. MRCP may be useful. Normal spleen. Normal pancreas. Normal bilateral adrenal glands. Normal right kidney. Normal left kidney. Normal visualized stomach. Normal small intestine. Normal colon. There is non-visualization of the appendix. There is diffuse atherosclerotic calcification of the abdominal aorta with elongation and tortuosity, but without a demonstrated aneurysm. Normal inferior vena cava. Normal retroperitoneum. Normal abdominal wall. Normal osseous structures. CT/CT Chest AND Abd W/ Contrast IMPRESSION: 1. Enlarging right lower lobe nodule worrisome for bronchogenic carcinoma. 2. Moderate biliary and pancreatic ductal dilatation. MRCP would be useful. Electronically Signed: Jerad Luther MD at 15:05 EDT ,
== END | disposition home or self-care (01) ==
LOC: CT 12:51
PROVIDERS: PCP Family Medicine; Referring Provider Internal Medicine Medical Oncology; Visit Provider Internal Medicine Medical Oncology
DX: C34.30 Malignant neoplasm of lower lobe, unspecified bronchus or lung (principal)
CPT/HCPCS: 71260; 74160; Q9967

== ENCOUNTER → 2022-10-31 | Outpatient (CLI) | payer MEDICARE, SELFPAY ==
--- NOTE | 2022-10-31 12:14 | RAD_ITS ---
STUDY: X-RAY CHEST REASON FOR EXAM: Female, 72 years old. redd TECHNIQUE: Frontal and lateral views of the chest. COMPARISON: CT chest July 25, 2022 FINDINGS: Lungs are hyperaerated. Cavitary lesion or pneumatocele left pulmonary apex appears loculated. Associated local pleural parenchymal reaction. Pleural scarring noted in the right pulmonary apex. Right perihilar subsegmental atelectasis. Right perihilar nodule measures 16 mm in diameter. Heart and mediastinum are normal. Bony thorax is intact. RAD/Chest PA and Lateral IMPRESSION: Cavitary lesion and pleural parenchymal reaction left pulmonary apex. Right perihilar nodule. Recommend follow-up CT chest with IV contrast. COPD. Electronically Signed: Arcadio Oconnell MD at 17:08 EST ,
== END | disposition home or self-care (01) ==
LOC: RAD 12:13
PROVIDERS: PCP Family Medicine; Visit Provider Physician Assistant Medical
DX: J98.4 Other disorders of lung (principal); R06.09 Other forms of dyspnea
CPT/HCPCS: 71046

== ENCOUNTER → 2022-11-21 | Outpatient (CLI) | payer MEDICARE, SELFPAY ==
--- NOTE | 2022-11-21 16:10 | CT_ITS ---
STUDY: CT CHEST T ABDOMEN WITH CONTRAST REASON FOR EXAM: Female, 72 years old. MONITOR LUNG CA-IV ONLY RADIATION DOSAGE (If Supplied By Facility): CTDIvol = ( 10.38 ) mGy, DLP = ( 417.57 ) mGycm TECHNIQUE: Transaxial imaging was performed following intravenous administration of IV 100mL Isovue-300. Multiplanar coronal and sagittal images were reformatted. Individualized dose optimization techniques were used for this CT. COMPARISON: Comparison is made with prior examination 07/25/2022. FINDINGS: CHEST Hyperinflation. Emphysematous changes. Stable fibrocalcific scarring in the left upper lobe and left lung apex with persistent loculated pneumothorax versus large cystic change with a nodular density along its peripheral medial aspect. Persistent pleural-based soft tissue density in the right lower lobe. This is unchanged. There is evidence of underlying bony destruction. Interval increase in size of the previously seen nodule in the right lower lobe as seen on axial image #69. It presently measures 16.6 mm. Previously it measured 15 mm. Stable bullous change in the posterior medial aspect of the right lower lobe. Scarring in the right middle lobe as well as in the lower lobes. Calcified pleural plaques in the medial aspect of the right upper lobe. There are calcifications of the coronary arteries. Normal mediastinum. Normal hilar regions. Normal unenhanced pulmonary arteries. There is atherosclerotic calcification of the aortic arch with tortuosity and elongation of the aortic arch and descending thoracic aorta. Diffuse metastatic deposits in the visualized lower cervical and thoracic vertebrae as well as the upper lumbar vertebrae with loss of height in the mid dorsal level as well as in the upper lumbar level. ABDOMEN Once again, there is evidence of a dilated intrahepatic biliary ducts. There is dilatation of the common bile duct down to the insertion into the ampulla of VATER. A stricture of the distal portion of the common bile duct should be ruled out. There is mildly distended gallbladder with tiny gallstones in the gallbladder lumen. Small gallstones are seen in the dependent portion of the gallbladder lumen. Normal spleen. Normal pancreas. Normal bilateral adrenal glands. Normal right kidney. Normal left kidney. Normal visualized stomach. Normal small intestine. Normal colon. The appendix is visualized and appears normal. There is diffuse atherosclerotic calcification of the abdominal aorta, without a demonstrated aneurysm. Normal inferior vena cava. Normal retroperitoneum. Normal abdominal wall. Diffuse bony metastasis with loss of height of the L5, L3 and L1 vertebrae. CT/CT Chest AND Abd W/ Contrast IMPRESSION: Stable examination. Persistent dilatation of the common bile duct down to the ampulla of VATER. Correlation with MRCP is recommended. Small gallstones. Interval increase in the previously seen nodule in the right lower lobe. Electronically Signed: Ever Gomez MD at 10:55 EST ,
== END | disposition home or self-care (01) ==
LOC: CT 15:59
PROVIDERS: PCP Family Medicine; Visit Provider Internal Medicine Medical Oncology
DX: C34.32 Malignant neoplasm of lower lobe, left bronchus or lung (principal)
CPT/HCPCS: 71260; 74160; Q9967

== ENCOUNTER → 2022-12-29 | Outpatient (CLI) | payer MEDICARE, SELFPAY ==
--- NOTE | 2022-12-29 13:27 | BD_ITS ---
STUDY: DUAL ENERGY X-RAY ABSORPTIOMETRY / DXA REASON FOR EXAM: Female, 72 years old. SCREENING TECHNIQUE: Bone Mineral Density (BMD) measurements of lumbar spine and bilateral hips were obtained. COMPARISON: None. FINDINGS: Lumbar Spine (L1-L4): g/cm2 (0.651) / T-score (-3.9) / Z-score (-1.6) Findings are suggestive of osteoporosis with a high fracture risk. Left Femur Total: g/cm2 (0.613) / T-score (-2.7) / Z-score (-1.1) Left Femoral Neck: g/cm2 (0.487) / T-score (-3.3) / Z-score (-1.4) Right Femur Total: g/cm2 (0.469) / T-score (-3.9) / Z-score (-2.3) Right Femoral Neck: g/cm2 (0.396) / T-score (-4.1) / Z-score (-2.2) BD/Dexa Bone Density Study IMPRESSION: The patient is considered osteoporotic as outlined below according to World Philip Organization (WHO) criteria with a high fracture risk. Reference Information: The T-score is the number of standard deviations above or below the standard which is normal for young adults at their peak bone mineral density. The World Health Organization (WHO) interprets the T-scores as follows: Above -1 Normal bone density Between -1 and -2.5 Osteopenia Equal to / or below -2.5 Osteoporosis As a practical clinical guideline, osteopenia may be graded as follows: Mild -1 through -1.5 Moderate -1.6 through -2.0 Severe -2.1 through -2.4 The Z-score is the number of standard deviations above or below age-matched controls. A Z-score of less than -1.5 would be considered abnormal. References: 1. NIH Osteoporosis and Related Bone Diseases www osteo.org 2. International Society for Clinical Densitometry www iscd.org 3. National Osteoporosis Foundation www nof.org Electronically Signed: Ever Gomez MD at 12:54 EDT ,
== END | disposition home or self-care (01) ==
PROVIDERS: PCP Family Medicine; Visit Provider Internal Medicine Medical Oncology
DX: S22.000A Wedge compression fracture of unspecified thoracic vertebra, initial encounter for closed fracture (principal); Z13.820 Encounter for screening for osteoporosis
CPT/HCPCS: 77080

== ENCOUNTER → 2023-01-16 | Outpatient (CLI) | payer MEDICARE, SELFPAY ==
--- NOTE | 2023-01-16 13:17 | CT_ITS ---
STUDY: CT CHEST T ABDOMEN WITH CONTRAST REASON FOR EXAM: Female, 72 years old. MONITOR LUNG CA RADIATION DOSAGE (If Supplied By Facility): CTDIvol = ( 9.85 ) mGy, DLP = ( 367.89 ) mGycm TECHNIQUE: Transaxial imaging was performed following intravenous administration of IV 100mL Isovue-300. Individualized dose optimization techniques were used for this CT. COMPARISON: No relevant priors. FINDINGS: CHEST There is loss of volume in left hemithorax status post left lower lobectomy. There is residual interstitial and emphysematous change in association with pleural-parenchymal scarring in the pulmonary apex as well as a large bullous cavity with nodular thickening of the lombardi. There are interstitial and emphysematous changes within the right lung more pronounced in the right lower lobe. There is focal nodular pleural thickening or mass in the posterior segment of the right upper lobe measuring approximately 4.4 x 2 cm. Within the superior segment of the right lower lobe there is also a noncalcified nodule measuring approximately 1.75 x 1.65 cm suspicious for neoplasm. There is calcific pleural plaquing in the right apex. Heart is mildly enlarged and there is coronary artery calcification. Normal mediastinum. Normal hilar regions. Pulmonary arteries dilated consistent with pulmonary hypertension.. Atherosclerotic change of the aorta without evidence for aneurysm. There are multiple chronic compression deformities of the mid to distal dorsal spine and multiple sclerotic densities likely metastasis.. Small hiatal hernia is noted ABDOMEN Liver is prominent. There is a small cyst in left lobe. There is bile duct dilatation in association with distended gallbladder which contains tiny poorly calcified stones. . Normal spleen. Pancreas is normal in size although there is dilatation of the pancreatic duct. Possibility of lesion involving the ampulla cannot be excluded. Normal bilateral adrenal glands. Normal right kidney. Normal left kidney. Normal visualized stomach. Mild ileus with diffuse fecal retention throughout the colon.. No evidence for acute appendicitis. Atherosclerotic changes of the aorta without evidence for aneurysm. . Normal inferior vena cava. Normal retroperitoneum. Normal abdominal wall. There are old compression fractures of L5, L3 and L1 demonstrating increased sclerosis possibly pathologic fracture. 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 CT/CT Chest AND Abd W/ Contrast IMPRESSION: Postsurgical changes status post left lower lobectomy. Persistent nodule in the right lower lobe with minimal increase in size since previous study as well as focal pleural-based nodular density in the right upper lobe not appreciably changed possibly neoplastic. Multiple bone metastasis and chronic compression fractures Distended gallbladder containing tiny stones with both biliary and pancreatic ductal dilatation. No definitive evidence for intraductal stone raising question of ampullary lesion. This may be further assessed with MRI/ MRCP if clinically warranted. Electronically Signed: Azam Correa MD at 21:53 EDT ,
== END | disposition home or self-care (01) ==
LOC: CT 13:16
PROVIDERS: PCP Family Medicine; Referring Provider Internal Medicine Medical Oncology; Visit Provider Internal Medicine Medical Oncology
DX: C34.32 Malignant neoplasm of lower lobe, left bronchus or lung (principal)
CPT/HCPCS: 71260; 74160; Q9967

== ENCOUNTER 2023-02-10 10:40 | Day surgery (SDC) | payer MEDICARE, SELFPAY ==
[2023-02-10] VITALS (15 sets, daily range): BP systolic 82–143; BP diastolic 48–67; PULSE 79–93; RESP 16–18; TEMP 36.4–36.9; O2SAT 93–100; BMI 17.1
--- NOTE | 2023-02-10 11:15 | SUR.PREOP ---
Room air pulse ox obtained per Dr Kim's order 78% pt then returned to [facility].
[2023-02-10] MEDS: Lactated Ringers 1,000 ML 15 ML IV (11:22)
[2023-02-10] MEDS: Ipratropium/Albuterol Sulfate 3 ML AMPUL.NEB INHALATION ×2 (11:25→14:58)
--- NOTE | 2023-02-10 13:00 | BONBX_PTH ---
PATIENT: SUSHIL CALLAHAN LOC: [facility] – [place] U#:[id number] AGE/SX: 73/F ROOM: RE02/10/[address]: Dr. Tala Grubbs MD : 1950 BED: DIS: 02/10/2023 SPEC #: [id number] RECD: 02/10/23 15:55 STATUS: SHANNAN REQ #: [id number] PIERO: 02/10/23 13:[address]: Tala Grubbs DEPT: SURGICAL PATHOLOGY RECD BY: Jemima Horne ENTERED: 02/13/23 10:04 SP TYPE: Bone OTHR DR: Dr. Hi Jean MD Tissues: A - Vertebra, NOS B - Vertebra, NOS Procedures: Decalcification bone/plaque Surgery Specimen Level V HEADER OPERATION: Kyphoplasty L1 & L3 PRE-OP DIAGNOSIS: Compression fracture TISSUE SUBMITTED: A ? L1 vertebral body, B ? L3 vertebral body MICROSCOPIC DIAGNOSIS A. L1 vertebral body, bone biopsy: Trilineage hematopoiesis. Changes consistent with organizing fracture callus. B. L3 vertebral body, bone biopsy: Trilineage hematopoiesis. Changes consistent with organizing fracture callus. AM:dalila 02/14/2023 MICROSCOPIC DESCRIPTION Slides are reviewed. GROSS DESCRIPTION A - Received in fixative is one container labeled with the patient's name and designated L1 vertebral body. The specimen consists of multiple irregular fragments of blood clot mixed with fragments of bone that in aggregate measure 0.7 x 0.5 x 0.1 cm. The specimen is totally submitted in one cassette after decalcification. B - Received in fixative is one container labeled with the patient's name and designated L3 vertebral body. The specimen consists of multiple irregular fragments of blood clot mixed with possible fragments of bone that in aggregate measure 2.5 x 2.5 x 0.3 cm. The specimen is totally submitted in one cassette after decalcification. / SJ:dalila 02/13/2023 TC:5 CPT: 75741 x2, 57887 x2
--- NOTE | 2023-02-10 13:11 | RAD_ITS ---
CLINICAL HISTORY: Female, 73 years old. Almost complete collapse of the L1 vertebrae. PROCEDURE: KYPHOPLASTY - L1 vertebrae. FLUOROSCOPY TIME (if supplied): (153.9 seconds) minutes/seconds. 43 mGy TECHNIQUE: (All elements of maximal sterile barrier technique followed, including US elements as applicable) Fluoroscopic services provided for vertebroplasty of the L1 vertebrae. IMPRESSION: Fluoroscopic services provided for vertebroplasty of the L1 vertebrae. Electronically Signed: Ever Gomez MD at 14:17 EDT , CLINICAL HISTORY: Female, 73 years old. Loss of height of the L3 vertebrae. PROCEDURE: KYPHOPLASTY - L3 vertebrae FLUOROSCOPY TIME (if supplied): (153.9 seconds) minutes/seconds. 43 mGy RAD/Lumbar Spine 2 or 3 Views IMPRESSION: Intraoperative fluoroscopic services provided for tibial plasty of the L3 vertebrae. Electronically Signed: Ever Gomez MD at 14:18 EDT ,
[2023-02-10] MEDS: Bupivacaine 0.25% 30 ML Vial (13:21)
[2023-02-10] MEDS: Lidocaine 1% (30 ml sdv) 30 ML Vial (13:21)
== END 2023-02-10 16:25 | disposition home or self-care (01) ==
LOC: SDC 10:41 → AC 12:22
PROVIDERS: PCP Family Medicine; Referring Provider Anesthesiology Pain Medicine; Visit Provider Anesthesiology Pain Medicine
PROC: (CPT 22514; principal; 2023-02-10 12:45)
DX: S32.019A Unspecified fracture of first lumbar vertebra, initial encounter for closed fracture (principal); S32.039A Unspecified fracture of third lumbar vertebra, initial encounter for closed fracture; M80.08XA Age-related osteoporosis with current pathological fracture, vertebra(e), initial encounter for fracture; J44.9 Chronic obstructive pulmonary disease, unspecified; I48.92 Unspecified atrial flutter; I48.0 Paroxysmal atrial fibrillation; D45 Polycythemia vera; I10 Essential (primary) hypertension; E03.9 Hypothyroidism, unspecified; Z99.81 Dependence on supplemental oxygen; R91.8 Other nonspecific abnormal finding of lung field; Z87.891 Personal history of nicotine dependence; M54.50 Low back pain, unspecified; X58.XXXA Exposure to other specified factors, initial encounter; M89.9 Disorder of bone, unspecified
CPT/HCPCS: 22514; 22515; 01942; 72100; 76000; 88307; 88311; 94640; J7120; J2405

== ENCOUNTER 2023-02-23 12:53 | Emergency (ER) | payer MEDICARE, SELFPAY ==
[2023-02-23 12:54] VITALS: BP 142/61; PULSE 82; RESP 24; TEMP 36.7; O2SAT 100
--- NOTE | 2023-02-23 12:59 | RAD_ITS ---
STUDY: X-RAY CHEST REASON FOR EXAM: Female, 73 years old. SOB TECHNIQUE: PA and lateral views of the chest. COMPARISON: Comparison is made with prior study dated April 30, 2023. FINDINGS: Hyperinflation. Since prior study, there has been progressive increase in the scarring in the left lung with the volume loss in the left lung. Stable cystic density in the left lung apex. Progressive increased markings in the right lower lobe suggestive of scarring as well as in the right upper lobe. Normal size heart. Normal mediastinum and samara. Normal visualized pulmonary arteries. There is atherosclerotic calcification of the aortic arch with tortuosity. There are diffuse degenerative changes of the visualized thoracic spine. Prior vertebroplasty of the T12 or L1 vertebrae. Normal visualized ribs, clavicles, and shoulders. There is no demonstrated abnormality of the visualized soft tissue structures of the upper abdomen. RAD/Chest 1 View (Portable) IMPRESSION: Since prior study, there has been progressive scarring in the left lung with volume loss in the left hemithorax. Progressive scarring in the right lower lobe and right midlung. Diffuse emphysematous changes. Stable cavitary lesion in the left lung apex. Electronically Signed: Ever Gomez MD at 14:04 EDT ,
--- NOTE | 2023-02-23 12:59 | EKG12_ITS ---
Test Reason : SOB Blood Pressure : / mmHG Vent. Rate : 082 BPM Atrial Rate : 082 BPM P-R Int : 130 ms QRS Dur : 072 ms QT Int : 354 ms P-R-T Axes : 080 041 110 degrees QTc Int : 413 ms Normal sinus rhythm Possible Left atrial enlargement ST & T wave abnormality, consider anterior ischemia Abnormal ECG When compared with ECG of 01-OCT-2019 10:21, Significant changes have occurred Confirmed by BUNNY TRAVIS, TINO ([id number]), rewrite editor VICKIE JUAN ([id number]) on 02/28/2023 9:11:34 AM Referred By: NISSA Confirmed By:TINO HOLLIS MD
[2023-02-23 13:30] LABS: Absolute Lymphocyte Count 0.83 X10^3/uL (0.83-4.51); Absolute Neutrophil Count 16.7 X10^3/uL (2.0-7.7); Basophil# 0.32 X10^3/uL; Basophil% 1.6 % (0-1); Eosinophil# 0.78 X10^3/uL; Eosinophils% 3.8 % (0-5); Hemoglobin 11.2 g/dL (12.0-15.0); Lymphocyte # 0.83 X10^3/ul (0.83-4.51); Lymphocyte % 4.1 % (19-41); Mean Corp Hgb Conc 31.1 g/dL (32-36); Mean Corpuscular Volume 83.7 fL (81-99); Mean Platelet Vol. 8.7 fl (6.2-12.0); Monocyte# 1.63 X10^3/uL; NRBC Flagged by Analyzer 0 % (0-5); POSITIVE COUNT YES; POSITIVE DIFFERENTIAL YES; RBC Distribution Width CV 17.6 % (11.6-14.6); RBC Distribution Width SD 53.4 fl (35.1-43.9); White Blood Count 20.4 K/mm3 (4.4-11.0)
[2023-02-23 13:34] LABS: Differential Indicated SCAN CRITERIA MET; Platelet Count 1528 K/mm3 (150-450)
[2023-02-23 13:52] LABS: Anion Gap 8 (5-15); BUN 16 mg/dL (7-18); BUN/Creat Ratio 43.4 RATIO (10-20); Calcium,Total 9.8 mg/dL (8.5-10.1); Chloride 94 mmol/L (98-107); Creatinine, Serum 0.37 mg/dL (0.55-1.02); EST Glomerular Filtration Rate 183 mL/min (>60); Est Glom Filt Rate - Afr Amer 221 mL/min (>60); Glucose 90 mg/dL (74-106); Potassium 4.3 mmol/L (3.5-5.1); Sodium Level 134 mmol/L (136-145); Troponin-I HS 9 pg/mL (3.0-54.0)
[2023-02-23 13:58] VITALS: O2SAT 98; BMI 16.3
[2023-02-23 13:59] VITALS: BP 154/79; PULSE 77; RESP 22; O2SAT 98
[2023-02-23 14:01] VITALS: BP 154/79; PULSE 77; RESP 22; TEMP 36.7; O2SAT 98
[2023-02-23 14:12] LABS: Anisocytosis 2+; Platelet Estimate MKD INC (ADEQ)
--- NOTE | 2023-02-23 14:48 | ED.VIS.DYS ---
HPI History of Present Illness Chief Complaint: Shortness of Breath Narrative Narrative: 73-year-old female with known non-small cell lung carcinoma of the left lung. Patient presenting because her pulse ox dropped today when her heart rate got up to about 220. Patient with history of paroxysmal A-fib and is anticoagulated on Eliquis. Patient felt a little bit lightheaded for about a minute. Her pulse ox dropped into the 70s. She currently wears anywhere from 4-6 at baseline. Denies any chest pain when this happens. No fevers or chills. Patient was at an office visit for Dr. Alfaro on this occurred. No fevers or chills. [facility] Medical History (Updated 02/23/23 @ 16:04 by Belinda Arizmendi DATA INTEGRITY SPECIALIST, DATA INTEGRITY SPECIALIST-C) Alcohol use Anxiety Arthritis Atrial flutter Cardiology follow-up encounter Chest pain Chronic bronchitis COPD (chronic obstructive pulmonary disease) Encounter for education Encounter for immunotherapy Essential hypertension Excessive bleeding Former smoker GERD (gastroesophageal reflux disease) History of atrial fibrillation History of echocardiogram History of lung cancer Hypertension Hypothyroidism Hypoxia Low iron Lung cancer Lung nodule On home oxygen therapy Paroxysmal atrial fibrillation Peptic ulcer disease Polycythemia Thrombocytosis Uses wheelchair Walker as ambulation aid Wears dentures Wears glasses Home Medications venlafaxine 150 mg capsule,extended release 24 hr 150 mg PO DAILY anxiety 10/24/14 [History Last Taken 11/01/19] multivitamin 1 ea PO DAILY supplement 10/28/19 [History Last Taken Unknown] acetaminophen 500 mg tablet 500 mg PO Q4H PRN PRN Pain Score 1-5/10 11/01/19 [Rx Last Taken Unknown] albuterol sulfate 90 mcg/actuation aerosol inhaler (ProAir HFA) 2 puff inhalation Q6H PRN sob 11/13/20 [History Last Taken Unknown] ipratropium 0.5 mg-albuterol 3 mg (2.5 mg base)/3 mL nebulization soln 3 ml inhalation Q4H PRN shortness of breath or wheezing #180 mL 12/01/20 [Rx Last Taken Unknown] mometasone-formoterol HFA 200 mcg-5 mcg/actuation aerosol inhaler (Dulera) 2 puff inhalation BID #13 grams 12/01/20 [Rx Last Taken Unknown] levothyroxine 125 mcg tablet 75 mcg PO DAILY 12/08/21 [History Last Taken Unknown] sodium chloride 1 gram tablet 1,000 mg PO BID PRN electrolyte replenishment #60 tabs 05/16/22 [Rx Last Taken Unknown] diphenhydramine HCl 12.5 mg/5 mL oral liquid 12.5 mg PO QHS 06/29/22 [History Last Taken Unknown] polysaccharide iron complex 150 mg iron capsule (Ferrex) 150 mg PO DAILY #90 caps 10/05/22 [Rx Last Taken Unknown] metoprolol tartrate 25 mg tablet 25 mg PO BID #180 tabs 10/12/22 [Rx Last Taken Unknown] cyclobenzaprine 10 mg tablet 10 tablet PO DAILY 11/28/22 [History Last Taken Unknown] montelukast 10 mg tablet (Singulair) 10 mg PO QPM #90 tabs 12/26/22 [Rx Last Taken Unknown] diltiazem HCl 120 mg capsule,24 hr,extended release 120 mg PO DAILY capsule less expensive than tablet #30 caps 01/18/23 [Rx Last Taken Unknown] apixaban 2.5 mg tablet (Eliquis) 2.5 mg PO BID 02/03/23 [History Last Taken Unknown] fluticasone propionate 50 mcg/actuation nasal spray,suspension 2 spray intranasal DAILY PRN Congestion 02/03/23 [History Last Taken Unknown] diltiazem HCl 180 mg capsule,extended release 24 hr 180 mg PO DAILY #30 caps 02/23/23 [Rx Last Taken Unknown] hydroxyurea 500 mg capsule (Hydrea) 500 mg PO DAILY #30 caps 02/23/23 [Rx Last Taken Unknown] Allergy/AdvReac Type Severity Reaction Status Date / Time Penicillins Allergy Rash Verified 02/23/23 12:53 Family History Father CAD (coronary artery disease) Hypertension Grandmother Diabetes Grandfather Cancer Surgical History History of cardioversion (08/30/09) History of lobectomy of lung (~12/26/14) History of tonsillectomy History of total abdominal hysterectomy Social History Smoking Status: Former smoker Tobacco: How many years used: 40 how long ago did patient quit smokin years ago 2020 alcohol intake: current alcohol intake frequency: 0-2 drinks per day Alcohol type: hard liquor substance use type: does not use caffeine: Yes Type: coffee Number of servings: 3 ROS ROS ED Constitutional Constitutional ED: Denies chills, fever(s) or sweats Eyes Eyes: Denies blurry vision or change in vision ENT ENT ED: Denies ear pain or sore throat Cardiovascular Cardiovascular: Reports palpitations, racing heartbeat and other; Denies chest pain Respiratory/Chest Respiratory/Chest: Denies cough, dyspnea or sputum Gastrointestinal Gastrointestinal: Denies abdominal pain, constipation, diarrhea, nausea or vomiting Genitourinary Genitourinary ED: Denies dysuria, hematuria or urinary frequency Musculoskeletal Musculoskeletal: Denies arthralgias, myalgias or neck pain Integumentary Denies abscess, Abrasions or rash Neurologic Neurologic: Denies headache(s), paresthesias or weakness Psychiatric Psychiatric: Denies anxiety, depression, suicidal ideation or suicidal thoughts Endocrine Endocrinology: Denies polydipsia or polyuria EXAM Physical Exam Const Vital Signs: 02/23/23 12:54 02/23/23 13:58 02/23/23 13:59 Temperature 98.1 F Temperature Source Temporal Pulse Rate 82 Respiratory Rate 24 H 22 H Respiratory Effort Respiratory Pattern Blood Pressure 142/61 H Blood Pressure Mean 88 Pulse Ox 100 98 98 Oxygen Delivery Method Nasal Cannula Nasal Cannula Nasal Cannula Oxygen Flow Rate (L/min) 6 5 4 02/23/23 13:59 02/23/23 14:01 02/23/23 14:02 Temperature 98.1 F Temperature Source Oral Pulse Rate 77 77 Respiratory Rate 22 H 22 H Respiratory Effort Short of Breath Respiratory Pattern Tachypnea Blood Pressure 154/79 H 154/79 H Blood Pressure Mean 104 104 Pulse Ox 98 98 Oxygen Delivery Method Nasal Cannula Nasal Cannula Oxygen Flow Rate (L/min) 4 4 02/23/23 15:16 Temperature 98.6 F Temperature Source Temporal Pulse Rate 80 Respiratory Rate 20 H Respiratory Effort Respiratory Pattern Blood Pressure 152/75 H Blood Pressure Mean 100 Pulse Ox 98 Oxygen Delivery Method Nasal Cannula Oxygen Flow Rate (L/min) 4 Positive cachectic General Appearance ED: cachectic Nutritional Appearance: cachectic HEENT Reports moist mucous membranes, dry mucous membranes and other other Mouth ED: Yes dry mucous membranes Mouth: dry mucous membranes Eyes PERRL and EOMs intact bilaterally Neck no lymphadenopathy and supple Resp normal respiratory effort and clear to auscultation bilaterally Auscultation: Negative for rales, rhonchi or wheezes Cardio regular rate and regular rhythm Extremity normal to inspection Neuro oriented x3 and CN's II-XII intact bilaterally Sensorium / Orientation: alert MDM MDM MDM Narrative Medical decision making narrative: Well-appearing 71-year-old female patient of Dr. Olivas. She has non-small cell lung carcinoma. Reportedly she had some elevated heart rates in office today and became hypoxic when this occurred. She has a history of a flutter and A-fib. The patient's family states that she was gone about 220 last about a minute. She had a little bit of lightheadedness with it. She did not have any chest pain. She has been otherwise healthy. She is alert and awake and in no acute distress. She is playing on her phone, and defers any history to her granddaughter who takes care of her. Differential includes ACS, pneumonia, A-fib, a flutter, anemia, electrolyte abnormalities. CBC shows to assess white blood cell count, hemoglobin, platelets, differential. BMP to assess renal function, electrolytes, glucose, anion gap. High-sensitivity troponin, EKG and chest x-ray will be obtained. CBC shows a leukocytosis 20.4 however the patient's white blood cell count is usually high. This is lower than previous. Hemoglobin stable 11.2. Platelets are high at 15.28 but they have also been high and this is not acute. Creatinine normal. Electrolytes within normal limits with exception of sodium 134. High-sensitivity troponin is 9. Patient is anticoagulated on Eliquis so a low suspicion of PE. Discussed with Dr. Teague who is on-call for cardiology and he recommended changing the patient's Cardizem to 180 mg daily. I do believe she is likely in favor flutter this was provided for them. I did try to reach out to oncology however it is taking a very long time to connect with them. The patient's family wants to go home. They will reach out to them individually. Return precautions were discussed. Impression: 1. Tachycardia?resolved 2. Hypoxia?resolved Lab Data Attestation: I reviewed the patient's lab results. Labs: Laboratory Results - last 24 hr 05/18/23 05/18/23 13:20 13:20 WBC 20.4 H RBC 4.30 Hgb 11.2 L Hct 36.0 L MCV 83.7 MCH 26.0 L MCHC 31.1 L RDW Std Deviation 53.4 H RDW Coeff of Maverick 17.6 H Plt Count 1528 H* MPV 8.7 Immature Gran % (Auto) 0.500 Neut % (Auto) 82.0 H Lymph % (Auto) 4.1 L Sherman % (Auto) 8.0 Eos % (Auto) 3.8 Baso % (Auto) 1.6 H Absolute Neuts (auto) 16.7 H Absolute Lymphs (auto) 0.83 Nucleated RBC % 0 Diff Path Review May foll Platelet Estimate MKD INC Anisocytosis 2+ Sodium 134 L Potassium 4.3 Chloride 94 L Carbon Dioxide 32.0 Anion Gap 8 BUN 16 Creatinine 0.37 L Est GFR (MDRD) Af Amer 221 Est GFR (MDRD) Non-Af 183 BUN/Creatinine Ratio 43.4 H Glucose 90 Calcium 9.8 Troponin I High Sens 9 Radiography Diagnostic Testing: Clinical Impression(s) from Imaging Studies Chest X-Ray 02/23/23 12:59 IMPRESSION: Since prior study, there has been progressive scarring in the left lung with volume loss in the left hemithorax. Progressive scarring in the right lower lobe and right midlung. Diffuse emphysematous changes. Stable cavitary lesion in the left lung apex. Electronically Signed: Ever Gomez MD at 14:04 EDT Reading Location ID and State: [facility] / [place] , Service support , Discharge Plan Triage Chief Complaint: Shortness of Breath ED Provider: Vincenzo Mulligan Dx/Rx/DC Orders Instructions: ED AFIB, ED Atrial Flutter Prescriptions: New diltiazem HCl 180 mg capsule,extended release 24hr 180 mg PO DAILY Qty: 30 0RF No Action albuterol sulfate [ProAir HFA] 90 mcg/actuation HFA aerosol inhaler 2 puff INHALATION Q6H PRN (Reason: sob) levothyroxine 125 mcg tablet 75 mcg PO DAILY Dulera 200-5 mcg/actuation HFA aerosol inhaler 2 puff INHALATION BID Qty: 13 6RF ipratropium-albuterol 0.5 mg-3 mg(2.5 mg base)/3 mL solution for nebulization 3 ml INHALATION Q4H PRN (Reason: shortness of breath or wheezing) Qty: 180 6RF diphenhydramine HCl 12.5 mg/5 mL liquid 12.5 mg PO QHS cyclobenzaprine 10 mg tablet 10 tablet PO DAILY hydroxyurea [Hydrea] 500 mg capsule 500 mg PO DAILY Qty: 30 1RF venlafaxine 150 MG capsule 150 mg PO DAILY multivitamin 1 EACH tablet 1 ea PO DAILY acetaminophen 500 MG tablet 500 mg PO Q4H PRN PRN (Reason: Pain Score 1-5/10) 0RF fluticasone propionate 50 mcg/actuation spray,suspension 2 spray intranasal DAILY PRN (Reason: Congestion) Eliquis 2.5 mg tablet 2.5 mg PO BID sodium chloride 1 gram tablet 1,000 mg PO BID PRN (Reason: electrolyte replenishment) Qty: 60 1RF polysaccharide iron complex [Ferrex 150] 150 mg iron capsule 150 mg PO DAILY Qty: 90 3RF metoprolol tartrate 25 mg tablet 25 mg PO BID MDD this is a dose change Qty: 180 3RF montelukast [Singulair] 10 mg tablet 10 mg PO QPM Qty: 90 3RF diltiazem HCl 120 mg capsule,extended release 24 hr 120 mg PO DAILY Qty: 30 11RF Primary Care Provider: Hi Jean Referrals: Hi Jean MD [Primary Care Provider] - Disposition Disposition: Home, Self Care Discharge Date/Time: 02/23/23 16:25
[2023-02-23 15:16] VITALS: BP 152/75; PULSE 80; RESP 20; TEMP 37; O2SAT 98
[2023-02-24 10:29] LABS: Pathologist Review Reviewed
== END 2023-02-23 16:25 | disposition home or self-care (01) ==
PROVIDERS: Emergency Provider Student in an Organized Health Care Education/Training Program; PCP Family Medicine; Visit Provider Student in an Organized Health Care Education/Training Program
DX: R00.0 Tachycardia, unspecified (principal); C34.92 Malignant neoplasm of unspecified part of left bronchus or lung; J44.9 Chronic obstructive pulmonary disease, unspecified; I48.0 Paroxysmal atrial fibrillation; Z87.891 Personal history of nicotine dependence; I10 Essential (primary) hypertension; Z79.01 Long term (current) use of anticoagulants; F41.9 Anxiety disorder, unspecified; Z79.899 Other long term (current) drug therapy; Z79.51 Long term (current) use of inhaled steroids; E03.9 Hypothyroidism, unspecified; Z99.81 Dependence on supplemental oxygen; R09.02 Hypoxemia; R19.7 Diarrhea, unspecified
CPT/HCPCS: 36415; 71045; 80048; 84484; 85025; 87811; 93005; 94760; 99282